=== PATIENT | male | born 1990 | race Hispanic/Latino ===

== ENCOUNTER 2017-02-13 14:00 | Inpatient (IN) | payer BC ==
[2017-02-13 14:13] VITALS: BMI 20.9
[2017-02-13] MEDS ORDERED: Iohexol 240 (50 ml) PO ONE (14:33)
[2017-02-13] MEDS ORDERED: Sodium Chloride 0.9% 1,000 ML IV STA (14:34)
--- NOTE | 2017-02-13 14:37 | ED PDOC ---
HPI: Abdomen Time Seen by Provider: 02/13/17 14:34 Chief Complaint (Nursing): Abdominal Pain Chief Complaint (Provider): abdominal pain History Per: Patient (27 y/o male here with lower abdominal pain/constipation x 1 week with new fever 101 at home. Patient states he was seen by Marcia MAGALLANES with [facility] noting constipation and started on myelax without relief of symptoms. Patient was seen by GI and started on medication. Was to have CT on tuesday but elevated wbc noted on bloodwork and fever last night prompted GI to refer to ED. Notes increased frequency in urination. NO h/o abdominal surgeries/etc.) Past Medical History Reviewed: Historical Data, Nursing Documentation, Vital Signs Vital Signs: Last Vital Signs Temp 99.2 F 02/13/17 18:20 Pulse 86 02/13/17 18:20 Resp 16 02/13/17 18:20 BP 131/73 02/13/17 18:20 Pulse Ox 99 02/13/17 18:20 - Medical History PMH: Anxiety Denies: Diabetes, Hepatitis, HIV, HTN, Seizures, Sexually Transmitted Disease - Family History Family History: States: Unknown Family Hx - Home Medications Home Medications: Ambulatory Orders Medication Instructions Recorded Escitalopram [Lexapro] 20 mg PO DAILY 02/13/17 clonazePAM [Klonopin] 0.5 mg PO BID 02/13/17 - Allergies Allergies/Adverse Reactions: Allergies Allergy/AdvReac Type Severity Reaction Status Date / Time No Known Allergies Allergy Verified 02/13/17 18:12 Review of Systems ROS Statement: Except As Marked, All Systems Reviewed And Found Negative Gastrointestinal: Positive for: Abdominal Pain Physical Exam - Reviewed Nursing Documentation Reviewed: Yes Vital Signs Reviewed: Yes - Physical Exam Appears: Positive for: Well, Non-toxic, No Acute Distress Head Exam: Positive for: ATRAUMATIC, NORMAL INSPECTION, NORMOCEPHALIC Skin: Positive for: Normal Color, Warm, DRY Eye Exam: Positive for: EOMI, Normal appearance, PERRL ENT: Positive for: Normal ENT Inspection Neck: Positive for: Normal, Painless ROM Cardiovascular/Chest: Positive for: Regular Rate, Rhythm Respiratory: Positive for: CNT, Normal Breath Sounds Gastrointestinal/Abdominal: Positive for: Normal Exam, Bowel Sounds, Soft, Tenderness (mild tenderness lower abdomen R> L. Decreased Bowel sounds.) Back: Positive for: Normal Inspection Extremity: Positive for: Normal ROM Neurologic/Psych: Positive for: Alert, Oriented - Laboratory Results Result Diagrams: 02/13/17 14:59 02/13/17 14:59 - ECG O2 Sat by Pulse Oximetry: 98 - Progress ED Course And Treament: ELEVATED WBC. URINE WITH RBC/WBC. ROCEPHIN ORDERED. LACTATE/BC X [address] ANGELES NOTES SIGMOID ABSCESS WITH ADJOINING COLITIS/CYSTITIS D/W DR. WESLEY ZOFOSTER 4.5 GM IV X 1 DOSE D/W DR. ACEVEDO. D/W DR. TELLEZ SALES DEMONSTRATOR FOR [facility]. FLAGYL 500 MG IV X 1 DOSE ADDED. D/W DR. CURIEL. WILL COME TO ED TO SEE PATIENT. Medical Decision Making Medical Decision Makin:32 CT FINDINGS: MULTI OF LOCULATED ABSCESS IN THE PELVIS WHICH APPEARS TO BE EMANATING FROM THE SIGMOID COLON. INFLAMMATORY CHANGES AFFECTING THE SIGMOID COLON, SPARING THE RECTUM AND DESCENDING COLON ARE SEVERE/LOCALLY INVASIVE. INFLAMMATORY CHANGES AFFECTED LOOPS OF SMALL BOWEL IN THE PELVIS WITHOUT MECHANICAL OBSTRUCTION. ALTHOUGH THERE IS NO OBVIOUS INVASION OF THE BLADDER, THE BLADDER WALL IS THICKENED. THE MULTILOCULATED PHLEGMONOUS PROCESS WITH INNUMERABLE LOCKING WELL IS A AIR MEASURES 6.7 X 6 BY 6.2 CM. IN THE PELVIS SEPARATE FROM THE PREVIOUSLY DESCRIBED FINDINGS IS A WELL-FORMED CYSTIC COLLECTION WITHOUT APPRECIABLE INFLAMMATORY COMPONENT 3.3 X 4.2 CM THE BORDERS APPEAR CONTIGUOUS WITH THE SIGMOID AND RECTUM. THERE IS A SMALL FISTULOUS TRACT WITH THE LARGER INFLAMMATORY COMPONENT. THESE FINDINGS ARE BEST SEEN ON THE SAGITTAL SERIES. PLEASE REFER TO SERIES 602 6 6-8 6 LOWER THORAX: Unremarkable. LIVER: Unremarkable. No gross lesion or ductal dilatation. GALLBLADDER AND BILE DUCTS: Unremarkable. PANCREAS: Unremarkable. No gross lesion or ductal dilatation. SPLEEN: Unremarkable. ADRENALS: Unremarkable. No mass. KIDNEYS AND URETERS: Mild fullness both collecting systems likely relates to the inflammatory process affecting both distal ureters. VASCULATURE: Unremarkable. No aortic aneurysm. BOWEL: Extensive inflammatory changes likely emanating from perforation of the sigmoid colon. Affected anatomic structures include sigmoid, pelvic loops of small bowel. APPENDIX: Normal appendix. PERITONEUM: Unremarkable. No free fluid. No free air. LYMPH NODES: Unremarkable. No enlarged lymph nodes. BLADDER: Diffuse moderate cystitis. This tract sports 80 year ray cold duct remnant midline structure. Please refer to series 602, image 73. REPRODUCTIVE: Unremarkable. BONES: No acute fracture. Moderate thoracolumbar scoliosis. OTHER FINDINGS: None. IMPRESSION: Intense inflammatory process in the pelvis including the larger multiloculated phlegmonous component with innumerable foci of air This likely emanates from the sigmoid colon. Fistulous communication with a separate less complicated and well-circumscribed collection in the pelvis has been described in greater detail above. Cystitis: The bladder wall is diffusely thickened and there are inflammatory changes tracking anteriorly along the midline consistent with inflammation in the recall duct remnant. Disposition - Clinical Impression Clinical Impression: Abscess of sigmoid colon - Patient ED Disposition Is Patient to be Admitted: Yes - Disposition Disposition Time: 18:32 Condition: FAIR - Pt Status Changed To: Hospital Disposition Of: Inpatient - Admit Certification Admit to Inpatient:: After my assessment, the patient will require hospitalization for at least two midnights. This is because of the severity of symptoms shown, intensity of services needed, and/or the medical risk in this patient being treated as an outpatient.
[2017-02-13] MEDS ORDERED: Iohexol 240 (50 ml) ONE (14:50)
[2017-02-13 15:05] LABS: BASO # 0.3 K/uL (0.0-0.2); BASO % 1.1 % (0.0-2.0); EOS % 0.1 % (0.0-4.0); LYMPH # 1.2 K/uL (1.0-4.3); LYMPH % 5.1 % (20.0-40.0); MEAN CORPUSCULAR HEMOGLOBIN 29.2 pg (27.0-31.0); MEAN CORPUSCULAR HGB CONC 32.5 g/dL (33.0-37.0); MEAN PLATELET VOLUME 7.6 fl (7.2-11.7); MONO # 2.6 K/uL (0.0-0.8); MONO % 10.8 % (0.0-10.0); NEUT # 20.2 K/uL (1.8-7.0); NEUT % 82.9 % (50.0-75.0); PLATELET COUNT 359 K/uL (130-400); RED CELL DISTRIBUTION WIDTH 13.1 % (11.5-14.5); WHITE BLOOD COUNT 24.4 K/uL (4.8-10.8)
[2017-02-13 15:14] LABS: ALB/GLOB RATIO 0.9 (1.0-2.1); ALKALINE PHOSPHATASE 93 U/L (38-126); ALT/SGPT 35 U/L (21-72); AST/SGOT 27 U/L (17-59); BILIRUBIN,TOTAL 0.9 mg/dl (0.2-1.3); BLOOD UREA NITROGEN 10 mg/dl (9-20); CALCIUM 9.5 mg/dL (8.4-10.2); CARBON DIOXIDE 27 mmol/L (22-30); CHLORIDE 99 mmol/L (98-107); GFR AFRICAN-AMERICAN > 60; GLUCOSE,RANDOM 93 mg/dL (75-110); LIPASE 17 U/L (23-300); POTASSIUM 4.6 MMOL/L (3.6-5.0); SODIUM 142 mmol/l (132-148); TOTAL PROTEIN 7.8 G/DL (6.3-8.2)
[2017-02-13 15:24] LABS: GRANULAR CAST 4 /lpf (0-1); RBC URINE 25 /hpf (0-3); URINE BACTERIA RARE (<OCC); URINE CALCIUM OXALATE CRYSTALS MANY /hpf (<OCC); WBC URINE 7 /hpf (0-5)
[2017-02-13 15:26] LABS: URINE BILIRUBIN NEGATIVE (NEGATIVE); URINE BLOOD SMALL (NEGATIVE); URINE COLOR AMBER (YELLOW); URINE GLUCOSE (UA) NEG (Normal); URINE KETONE 20 mg/dL (NEGATIVE); URINE LEUKOCYTE ESTERASE NEG Leu/uL (Negative); URINE PROTEIN 30 mg/dL (NEGATIVE); URINE UROBILINOGEN 0.2-1.0 mg/dL (0.2-1.0)
[2017-02-13 15:33] LABS: NEUTROPHIL 86 % (42-75); TOTAL CELLS COUNTED 100
[2017-02-13] MEDS ORDERED: cefTRIAXone (Rocephin) 1 gm Inj IVPB ONE ×2 (15:33→15:36)
[2017-02-13] MEDS ORDERED: Iodixanol 320 MG/ML 100 ML BOTTLE IV ONE (16:14)
[2017-02-13] MEDS ORDERED: Sodium Chloride 0.9% 100 ML IV ONE (16:14)
[2017-02-13] MEDS ORDERED: cefTRIAXone (Rocephin) 1 gm Inj ONE (16:52)
[2017-02-13] MEDS ORDERED: Piperacillin/Tazobact 4.5 GM in Sodium Chloride 0.9% 100 ML IVPB STA (17:47)
--- NOTE | 2017-02-13 17:56 | CT ---
PROCEDURE: CT Abdomen and Pelvis with contrast HISTORY: abdominal pain/fever COMPARISON: None. TECHNIQUE: Contrast dose: 90 cc Visipaque 320 Radiation dose: Total exam DLP = 441.54 mGy-cm. This CT exam was performed using one or more of the following dose reduction techniques: Automated exposure control, adjustment of the mA and/or kV according to patient size, and/or use of iterative reconstruction technique. FINDINGS: MULTI OF LOCULATED ABSCESS IN THE PELVIS WHICH APPEARS TO BE EMANATING FROM THE SIGMOID COLON. INFLAMMATORY CHANGES AFFECTING THE SIGMOID COLON, SPARING THE RECTUM AND DESCENDING COLON ARE SEVERE/LOCALLY INVASIVE. INFLAMMATORY CHANGES AFFECTED LOOPS OF SMALL BOWEL IN THE PELVIS WITHOUT MECHANICAL OBSTRUCTION. ALTHOUGH THERE IS NO OBVIOUS INVASION OF THE BLADDER, THE BLADDER WALL IS THICKENED. THE MULTILOCULATED PHLEGMONOUS PROCESS WITH INNUMERABLE LOCKING WELL IS A AIR MEASURES 6.7 X 6 BY 6.2 CM. IN THE PELVIS SEPARATE FROM THE PREVIOUSLY DESCRIBED FINDINGS IS A WELL-FORMED CYSTIC COLLECTION WITHOUT APPRECIABLE INFLAMMATORY COMPONENT 3.3 X 4.2 CM THE BORDERS APPEAR CONTIGUOUS WITH THE SIGMOID AND RECTUM. THERE IS A SMALL FISTULOUS TRACT WITH THE LARGER INFLAMMATORY COMPONENT. THESE FINDINGS ARE BEST SEEN ON THE SAGITTAL SERIES. PLEASE REFER TO SERIES 602 6 6-8 6 LOWER THORAX: Unremarkable. LIVER: Unremarkable. No gross lesion or ductal dilatation. GALLBLADDER AND BILE DUCTS: Unremarkable. PANCREAS: Unremarkable. No gross lesion or ductal dilatation. SPLEEN: Unremarkable. ADRENALS: Unremarkable. No mass. KIDNEYS AND URETERS: Mild fullness both collecting systems likely relates to the inflammatory process affecting both distal ureters. VASCULATURE: Unremarkable. No aortic aneurysm. BOWEL: Extensive inflammatory changes likely emanating from perforation of the sigmoid colon. Affected anatomic structures include sigmoid, pelvic loops of small bowel. APPENDIX: Normal appendix. PERITONEUM: Unremarkable. No free fluid. No free air. LYMPH NODES: Unremarkable. No enlarged lymph nodes. BLADDER: Diffuse moderate cystitis. This tract sports 80 year ray cold duct remnant midline structure. Please refer to series 602, image 73. REPRODUCTIVE: Unremarkable. BONES: No acute fracture. Moderate thoracolumbar scoliosis. OTHER FINDINGS: None. IMPRESSION: Intense inflammatory process in the pelvis including the larger multiloculated phlegmonous component with innumerable foci of air This likely emanates from the sigmoid colon. Fistulous communication with a separate less complicated and well-circumscribed collection in the pelvis has been described in greater detail above. Cystitis: The bladder wall is diffusely thickened and there are inflammatory changes tracking anteriorly along the midline consistent with inflammation in the recall duct remnant. Communication of results: Study completed at 17:17. Results discussed with physician assistant professor of sociology at 17:43. Final results available at 17:56. February 13, 2017.
[2017-02-13] MEDS ORDERED: metroNIDAZOLE 500mg/100ml NS 100 ML IVPB ONE (18:41)
--- NOTE | 2017-02-13 18:49 | CP.PCM.HP ---
History of Present Illness - History of Present Illness History of Present Illness: 27 yo male with history of anxiety came in because of abdominal distention and lower abdominal pain since 10 days ago. Pain was on and off, progressively getting worse and accompanied with watery diarrhea. Saw GI who took a CT scan and blood work last Tuesday. Blood work showed elevated WBC. Patient developed fever last night. With the on going abdominal pain plus the leukocytosis and fever, his GI doctor advised him to seek ER consultation. Pt also admitted increased frequency of urination. Present on Admission - Present on Admission Any Indicators Present on Admission: No History of DVT/PE: No History of Uncontrolled Diabetes: No Urinary Catheter: No Decubitus Ulcer Present: No Review of Systems - Review of Systems All systems: reviewed and no additional remarkable complaints except (aside from those mentioned above, 12 point system review were negative by me) Past Patient History - Past Social History Smoking Status: Never Smoked Chewing Tobacco Use: No Cigar Use: No Alcohol: > 2 Drinks/Day (drinks 6-10 beer/day on weekends) Home Situation {Lives}: With Family - CARDIAC Hx Cardiac Disorders: No Hx Hypertension: No - PULMONARY Hx Respiratory Disorders: No Hx Tuberculosis: No - NEUROLOGICAL Hx Neurological Disorder: No Hx Seizures: No - HEENT Hx HEENT Problems: No - RENAL Hx Chronic Kidney Disease: No - ENDOCRINE/METABOLIC Hx Endocrine Disorders: No - HEMATOLOGICAL/ONCOLOGICAL Hx Blood Disorders: No Hx Human Immunodeficiency Virus (HIV): No - INTEGUMENTARY Hx Dermatological Problems: No - MUSCULOSKELETAL/RHEUMATOLOGICAL Hx Musculoskeletal Disorders: No - GASTROINTESTINAL Hx Gastrointestinal Disorders: No - GENITOURINARY/GYNECOLOGICAL Hx Genitourinary Disorders: No Hx Sexually Transmitted Disorders: No - PSYCHIATRIC Hx Anxiety: Yes - SURGICAL HISTORY Hx Surgeries: No - ANESTHESIA Hx Anesthesia: No Meds Allergies/Adverse Reactions: Allergies Allergy/AdvReac Type Severity Reaction Status Date / Time No Known Allergies Allergy Verified 02/13/17 18:12 Physical Exam - Constitutional Appears: No Acute Distress - Head Exam Head Exam: ATRAUMATIC - Eye Exam Eye Exam: absent: Scleral icterus - ENT Exam ENT Exam: Mucous Membranes Moist - Neck Exam Neck exam: Negative for: Meningismus - Respiratory Exam Respiratory Exam: absent: Rhonchi, Wheezes, Respiratory Distress - Cardiovascular Exam Cardiovascular Exam: REGULAR RHYTHM, +S1, +S2 - GI/Abdominal Exam GI & Abdominal Exam: Distended, Firm, Normal Bowel Sounds, Tenderness ( tenderness more on suprapubic and RLQ). absent: Guarding, Rebound - Rectal Exam Rectal Exam: Deferred - Extremities Exam Extremities exam: Negative for: pedal edema - Back Exam Back exam: absent: tenderness - Neurological Exam Neurological exam: Alert, Oriented x3 - Psychiatric Exam Psychiatric exam: Normal Affect - Skin Skin Exam: Dry, Intact Results - Vital Signs Recent Vital Signs: Last Vital Signs Temp 99.2 F 02/13/17 18:20 Pulse 86 02/13/17 18:20 Resp 16 02/13/17 18:20 BP 131/73 02/13/17 18:20 Pulse Ox 98 02/13/17 18:32 - Labs Result Diagrams: 02/13/17 14:59 02/13/17 14:59 Assessment & Plan (1) Abscess of sigmoid colon Status: Acute Comment: admit to med/surg. Blood culture x 2. Urine C&S. NPO. IV hydration with NSS 100c/hr. Zosyn 3.375gm IV q 6hrs. Flagyl 500mg IV q 8hrs. surgical consult with Dr Haro. GI consult with Dr Ramos (2) Cystitis Status: Acute Comment: urine C&S. CT scan of abdomen: diffuse thickening of the bladder wall (3) DVT prophylaxis Status: Acute Comment: venodyne boots while in bed
[2017-02-13 19:16] LABS: PARTIAL THROMBOPLASTIN TIME 29.2 SECONDS (23.3-32.5)
--- NOTE | 2017-02-13 19:34 | CP.PCM.CON ---
History of Present Illness - History of Present Illness History of Present Illness: 27 y.o. male comes to the hospital c/o lower abdominal pain for the duration of the last week and half. Patient states that he never had similar pain before. Reports some fevers at home, no nausea, no vomiting, passing flatus and having loose bowel movements (no blood in the stool). Patient went to several doctors in [facility] and was told that he has some gas pains. Patient also saw a transit proof machine operator who did the blood work and told the patient that if he develops a fever to go to the hospital. Denies any sick contacts at home, no urinary symptoms. Never had a colonoscopy. Review of Systems - Constitutional Constitutional: Chills, Fever - EENT Eyes: Other (unremarkable) Ears: Other (unremarkable) Nose/Mouth/Throat: Other (unremarkable) - Cardiovascular Cardiovascular: Other (unremarkable) - Respiratory Respiratory: Other (unremarkable) - Gastrointestinal Gastrointestinal: As Per HPI - Genitourinary Genitourinary: As Per HPI - Reproductive: Male Reproductive:Male: Other (unremarkable) - Musculoskeletal Musculoskeletal: Other (unremarkable) - Integumentary Integumentary: Other (unremarkable) - Neurological Neurological: Other (unremarkable) - Psychiatric Psychiatric: Anxiety - Endocrine Endocrine: Other (unremarkable) - Hematologic/Lymphatic Hematologic: Other (unremarkable) Past Patient History - Past Social History Smoking Status: Never Smoked Chewing Tobacco Use: No Cigar Use: No Alcohol: > 2 Drinks/Day (drinks 6-10 beer/day on weekends) Home Situation {Lives}: With Family - CARDIAC Hx Cardiac Disorders: No Hx Hypertension: No - PULMONARY Hx Respiratory Disorders: No Hx Tuberculosis: No - NEUROLOGICAL Hx Neurological Disorder: No Hx Seizures: No - HEENT Hx HEENT Problems: No - RENAL Hx Chronic Kidney Disease: No - ENDOCRINE/METABOLIC Hx Endocrine Disorders: No - HEMATOLOGICAL/ONCOLOGICAL Hx Blood Disorders: No Hx Human Immunodeficiency Virus (HIV): No - INTEGUMENTARY Hx Dermatological Problems: No - MUSCULOSKELETAL/RHEUMATOLOGICAL Hx Musculoskeletal Disorders: No - GASTROINTESTINAL Hx Gastrointestinal Disorders: No - GENITOURINARY/GYNECOLOGICAL Hx Genitourinary Disorders: No Hx Sexually Transmitted Disorders: No - PSYCHIATRIC Hx Anxiety: Yes - SURGICAL HISTORY Hx Surgeries: No - ANESTHESIA Hx Anesthesia: No Meds Allergies/Adverse Reactions: Allergies Allergy/AdvReac Type Severity Reaction Status Date / Time No Known Allergies Allergy Verified 02/13/17 18:12 - Medications Medications: Current Medications Metronidazole (Flagyl 500mg/100ml Ns) 100 mls @ 100 mls/hr IVPB ONCE [facility] Sodium Chloride (Sodium Chloride 0.9%) 1,000 mls @ 100 mls/hr IV .Q10H LETICIA Metronidazole (Flagyl 500mg/100ml Ns) 100 mls @ 100 mls/hr IVPB Q8 [facility] Piperacillin Sod/Tazobactam (Sod 3.375 gm/ Sodium Chloride) 100 mls @ 100 mls/ hr IVPB Q6 [facility] Morphine Sulfate (Morphine) 2 mg IVP Q4 PRN PRN Reason: Pain, moderate (4-7) Physical Exam - Constitutional Appears: Well, Non-toxic, No Acute Distress - Head Exam Head Exam: ATRAUMATIC, NORMAL INSPECTION, NORMOCEPHALIC - Eye Exam Eye Exam: EOMI, Normal appearance, PERRL Pupil Exam: NORMAL ACCOMODATION, PERRL - ENT Exam ENT Exam: Mucous Membranes Dry - Neck Exam Neck exam: Positive for: Full Rom, Normal Inspection - Respiratory Exam Respiratory Exam: Clear to Auscultation Bilateral, NORMAL BREATHING PATTERN - Cardiovascular Exam Cardiovascular Exam: REGULAR RHYTHM, +S1, +S2 - GI/Abdominal Exam GI & Abdominal Exam: Hypoactive Bowel Sounds, Soft Additional comments: Tender to palpation in the LLQ, mildly distended, no rebound, no guarding - Rectal Exam Rectal Exam: Deferred - Extremities Exam Extremities exam: Positive for: full ROM, normal inspection - Neurological Exam Neurological exam: Alert, CN II-XII Intact, Oriented x3 - Psychiatric Exam Psychiatric exam: Normal Affect, Normal Mood - Skin Skin Exam: Dry, Intact, Normal Color, Warm Results - Vital Signs Recent Vital Signs: Last Vital Signs Temp 99.2 F 02/13/17 18:20 Pulse 86 02/13/17 18:20 Resp 16 02/13/17 18:20 BP 131/73 02/13/17 18:20 Pulse Ox 98 02/13/17 18:32 - Labs Result Diagrams: 02/13/17 14:59 02/13/17 14:59 Labs: Laboratory Results - last 24 hr 02/13/17 18:52 PT 13.1 H INR 1.26 H APTT 29.2 - Imaging and Cardiology CT scan - abdomen Status: Image reviewed by me, Report reviewed by me Assessment & Plan - Assessment and Plan (Free Text) Assessment: 27 y.o. male with colitis and edgar-colonic abscess Plan: - Admit to med/surg - Keep NPO - IV fluids - Pain control - Zosyn IV - Zofran prn - Will consult Interventional Radilogy for possible abscess drainage - Repeat labs in am - Will follow closely
[2017-02-13] MEDS: metroNIDAZOLE 500mg/100ml NS 100 ML IVPB SCH (19:37)
[2017-02-13] MEDS: Sodium Chloride 0.9% 1,000 ML IV SCH (19:46)
[2017-02-14] MEDS: Piperacillin/Tazobact 3.375 GM in Sodium Chloride 0.9% 100 ML IVPB SCH ×5 (00:33→21:29)
[2017-02-14] MEDS: metroNIDAZOLE 500mg/100ml NS 100 ML IVPB SCH ×5 (00:38→17:37)
[2017-02-14] MEDS: Sodium Chloride 0.9% 1,000 ML IV SCH ×3 (04:28→21:24)
[2017-02-14 05:12] LABS: BASO # 0.1 K/uL (0.0-0.2); BASO % 0.2 % (0.0-2.0); EOS % 0.1 % (0.0-4.0); HEMATOCRIT 33.3 % (35.0-51.0); LYMPH # 1.9 K/uL (1.0-4.3); MEAN CELL VOLUME 90.9 fl (80.0-94.0); MEAN CORPUSCULAR HEMOGLOBIN 29.4 pg (27.0-31.0); MEAN CORPUSCULAR HGB CONC 32.3 g/dL (33.0-37.0); MEAN PLATELET VOLUME 7.7 fl (7.2-11.7); MONO # 2.7 K/uL (0.0-0.8); MONO % 11.3 % (0.0-10.0); NEUT # 18.9 K/uL (1.8-7.0); NEUT % 80.4 % (50.0-75.0); RED CELL DISTRIBUTION WIDTH 13.1 % (11.5-14.5); WHITE BLOOD COUNT 23.5 K/uL (4.8-10.8)
[2017-02-14 05:27] LABS: BLOOD UREA NITROGEN 9 mg/dl (9-20); CALCIUM 8.8 mg/dL (8.4-10.2); CARBON DIOXIDE 18 mmol/L (22-30); CHLORIDE 104 mmol/L (98-107); GFR AFRICAN-AMERICAN > 60; GLUCOSE,RANDOM 78 mg/dL (75-110); SODIUM 141 mmol/l (132-148)
--- NOTE | 2017-02-14 09:22 | CP.PCM.PN ---
<Jared Carmenel - Last Filed: 02/14/17 09:19> Subjective - Date & Time of Evaluation Date of Evaluation: 02/14/17 Time of Evaluation: 07:45 - Subjective Subjective: General Surgery Pt S&E, Febrile overnight to 102.4. States pain has improved with meds. No other complaints at this time. Objective - Vital Signs/Intake and Output Vital Signs (last 24 hours): Temp Pulse Resp BP Pulse Ox 100 F H 119 H 20 118/68 97 02/14/17 08:38 02/14/17 08:38 02/14/17 08:38 02/14/17 08:38 02/14/17 08:38 - Medications Medications: Current Medications Metronidazole (Flagyl 500mg/100ml Ns) 100 mls @ 100 mls/hr IVPB ONCE LETICIA Last Admin: 02/14/17 09:05 Dose: 100 mls/hr Sodium Chloride (Sodium Chloride 0.9%) 1,000 mls @ 100 mls/hr IV .Q10H LETICIA Last Admin: 02/14/17 04:28 Dose: 100 mls/hr Metronidazole (Flagyl 500mg/100ml Ns) 100 mls @ 100 mls/hr IVPB Q8 LETICIA Last Admin: 02/14/17 00:38 Dose: 100 mls/hr Piperacillin Sod/Tazobactam (Sod 3.375 gm/ Sodium Chloride) 100 mls @ 100 mls/ hr IVPB Q6 [facility]ICIA Last Admin: 02/14/17 09:04 Dose: 100 mls/hr Morphine Sulfate (Morphine) 2 mg IVP Q4 PRN PRN Reason: Pain, moderate (4-7) Last Admin: 02/14/17 05:21 Dose: 2 mg - Labs Labs: 02/14/17 04:00 02/14/17 04:00 PT 13.1 SECONDS (9.6-11.2) H 02/13/17 18:52 INR 1.26 (0.92-1.08) H 02/13/17 18:52 APTT 29.2 SECONDS (23.3-32.5) 02/13/17 18:52 - Constitutional Appears: Non-toxic, No Acute Distress - Head Exam Head Exam: ATRAUMATIC, NORMOCEPHALIC - Eye Exam Eye Exam: EOMI. absent: Scleral icterus - Respiratory Exam Respiratory Exam: NORMAL BREATHING PATTERN. absent: Respiratory Distress - GI/Abdominal Exam GI & Abdominal Exam: Firm (in lower abd), Guarding (mild), Soft (in upper abd), Tenderness (in lower abdomen). absent: Distended, Rigid, Rebound - Neurological Exam Neurological Exam: Alert, Awake, Oriented x3 - Skin Skin Exam: Dry, Warm Assessment and Plan - Assessment and Plan (Free Text) Assessment: 27M with colitis and edgar-colonic abscess Plan: Interventional Radiology for possible abscess drainage NPO Analgesia IVF Cont Abx D/W Dr. Tahir Carmen PGY3 <Alvino Haro - Last Filed: 02/14/17 13:30> Subjective - Date & Time of Evaluation Date of Evaluation: 02/14/17 Time of Evaluation: 13:00 - Subjective Subjective: Patient was seen and examined at the bedside. Agree with resident's note above Objective - Vital Signs/Intake and Output Vital Signs (last 24 hours): Temp Pulse Resp BP Pulse Ox 100 F H 119 H 20 118/68 97 02/14/17 08:38 02/14/17 08:38 02/14/17 08:38 02/14/17 08:38 02/14/17 08:38 - Medications Medications: Current Medications Acetaminophen (Tylenol 325mg Tab) 650 mg PO Q6 PRN PRN Reason: Fever >100.4 F Acetaminophen (Tylenol 325 Mg Supp) 650 mg MT Q6 PRN PRN Reason: Fever >100.4 F Clonazepam (Klonopin) 0.5 mg PO BID [facility] Last Admin: 02/14/17 11:42 Dose: 0.5 mg Escitalopram Oxalate (Lexapro) 20 mg PO DAILY [facility] Last Admin: 02/14/17 11:42 Dose: 20 mg Metronidazole (Flagyl 500mg/100ml Ns) 100 mls @ 100 mls/hr IVPB ONCE [facility] Last Admin: 02/14/17 09:05 Dose: 100 mls/hr Metronidazole (Flagyl 500mg/100ml Ns) 100 mls @ 100 mls/hr IVPB Q8 [facility] Last Admin: 02/14/17 10:56 Dose: Not Given Piperacillin Sod/Tazobactam (Sod 3.375 gm/ Sodium Chloride) 100 mls @ 100 mls/ hr IVPB Q6 [facility] Last Admin: 02/14/17 09:04 Dose: 100 mls/hr Sodium Chloride (Sodium Chloride 0.9%) 1,000 mls @ 125 mls/hr IV .Q8H [facility] Morphine Sulfate (Morphine) 2 mg IVP Q4 PRN PRN Reason: Pain, moderate (4-7) Last Admin: 02/14/17 12:38 Dose: 2 mg - Labs Labs: 02/14/17 04:00 02/14/17 04:00 PT 13.1 SECONDS (9.6-11.2) H 02/13/17 18:52 INR 1.26 (0.92-1.08) H 02/13/17 18:52 APTT 29.2 SECONDS (23.3-32.5) 02/13/17 18:52 Assessment and Plan - Assessment and Plan (Free Text) Plan: - I have discussed the CT scan with Dr. Allen from IR and at this point no drainage by IR - Keep NPO - IV fluids - Continue antibiotics as per ID - GI follow up - Pain control - Repeat labs in am - Will follow
--- NOTE | 2017-02-14 10:48 | CP.PCM.CON ---
History of Present Illness - History of Present Illness History of Present Illness: Asked by Dr. Javed for a GI consultation on this patient. 27 year old male with history of anxiety who presents to hospital with complaint of progressive abdominal pain. He describes a LLQ 6/10 intensity abdominal pain that radiates to suprapubic region which began approximately 10 days ago. Prior to this he was in usual state of health. The abdominal pain is stabbing in nature and has been associated with multiple loose bowel movements. He also endorses chills but denies rectal bleeding, nausea, vomiting, or weight loss. He denies recent travel, sick contacts, recent antibiotic use, or similar prior episodes. No prior endoscopic evaluation. Social history: occasional cigarette smoker, social ETOH use Family history: grandfather (lung CA) Review of Systems - Review of Systems Review of Systems: - All other comprehensive 12 point review of systems performed, negative - Constitutional Constitutional: Chills - Cardiovascular Cardiovascular: absent: Acrocyanosis, Chest Pain, Chest Pain at Rest, Chest Pain with Activity, Claudication, Diaphoresis, Dyspnea, Dyspnea on Exertion, Edema, Irregular Heart Rhythm, Pain Radiating to Arm/Neck/Jaw, Leg Edema, Leg Ulcers, Lightheadedness, Orthopnea, Palpitations, Paroxysmal Nocturnal Dyspnea, Pedal Edema, Radiating Pain, Rapid Heart Rate, Slow Heart Rate, Syncope, Other - Respiratory Respiratory: absent: Cough, Dyspnea, Hemoptysis, Dyspnea on Exertion, Wheezing, Snoring, Stridor, Pain on Inspiration, Chest Congestion, Excessive Mucous Production, Change in Mucous Color, Pain with Coughing, Other - Gastrointestinal Gastrointestinal: Abdominal Pain, Loose Stools - Musculoskeletal Musculoskeletal: absent: Abnormal Gait, Arthralgias, Atrophy, Back Pain, Deformity, Joint Swelling, Limited Range of Motion, Loss of Height, Muscle Cramps, Muscle Weakness, Myalgias, Neck Pain, Numbness, Radiating Pain into Limb , Stiffness, Tingling, Other - Neurological Neurological: absent: Abnormal Gait, Abnormal Hearing, Abnormal Movements, Abnormal Speech, Behavioral Changes, Burning Sensations, Confusion, Convulsions , Disequilibrium, Dizziness, Numbness, Focal Weakness, Frequent Falls, Headaches , Lack of Coordination, Loss of Vision, Memory Loss, Paresthesias, Radicular Pain, Restless Legs, Sensory Deficit, Syncope, Tingling, Tremor, Vertigo, Weakness, Other Visual Disturbances, Other Past Patient History - Past Medical History & Family History Past Medical History?: Yes - Past Social History Smoking Status: Never Smoked - CARDIAC Hx Cardiac Disorders: No - PULMONARY Hx Respiratory Disorders: No - NEUROLOGICAL Hx Neurological Disorder: No - HEENT Hx HEENT Problems: No - RENAL Hx Chronic Kidney Disease: No - ENDOCRINE/METABOLIC Hx Endocrine Disorders: No - HEMATOLOGICAL/ONCOLOGICAL Hx Blood Disorders: No - INTEGUMENTARY Hx Dermatological Problems: No - MUSCULOSKELETAL/RHEUMATOLOGICAL Hx Musculoskeletal Disorders: No Hx Falls: No - GASTROINTESTINAL Hx Gastrointestinal Disorders: No - GENITOURINARY/GYNECOLOGICAL Hx Genitourinary Disorders: No - PSYCHIATRIC Hx Psychophysiologic Disorder: Yes Hx Anxiety: Yes Hx Substance Use: No - SURGICAL HISTORY Hx Surgeries: No - ANESTHESIA Hx Anesthesia: No Hx Anesthesia Reactions: No Meds Allergies/Adverse Reactions: Allergies Allergy/AdvReac Type Severity Reaction Status Date / Time No Known Allergies Allergy Verified 02/13/17 18:12 - Medications Medications: Current Medications Acetaminophen (Tylenol 325mg Tab) 650 mg PO Q6 PRN PRN Reason: Fever >100.4 F Acetaminophen (Tylenol 325 Mg Supp) 650 mg [place] Q6 PRN PRN Reason: Fever >100.4 F Metronidazole (Flagyl 500mg/100ml Ns) 100 mls @ 100 mls/hr IVPB ONCE [facility] Last Admin: 02/14/17 09:05 Dose: 100 mls/hr Sodium Chloride (Sodium Chloride 0.9%) 1,000 mls @ 100 mls/hr IV .Q10H [facility] Last Admin: 02/14/17 04:28 Dose: 100 mls/hr Metronidazole (Flagyl 500mg/100ml Ns) 100 mls @ 100 mls/hr IVPB Q8 [facility] Last Admin: 02/14/17 00:38 Dose: 100 mls/hr Piperacillin Sod/Tazobactam (Sod 3.375 gm/ Sodium Chloride) 100 mls @ 100 mls/ hr IVPB Q6 [facility] Last Admin: 02/14/17 09:04 Dose: 100 mls/hr Morphine Sulfate (Morphine) 2 mg IVP Q4 PRN PRN Reason: Pain, moderate (4-7) Last Admin: 02/14/17 05:21 Dose: 2 mg Physical Exam - Constitutional Appears: Non-toxic, No Acute Distress - Head Exam Head Exam: NORMAL INSPECTION - Eye Exam Eye Exam: EOMI, Normal appearance - ENT Exam ENT Exam: Mucous Membranes Moist - Respiratory Exam Respiratory Exam: Clear to Auscultation Bilateral - Cardiovascular Exam Cardiovascular Exam: REGULAR RHYTHM, +S1, +S2 - GI/Abdominal Exam GI & Abdominal Exam: Normal Bowel Sounds, Soft, Tenderness Additional comments: LLQ tenderness to palpation, +guarding, no rebound no palpable hepato/splenomegaly - Extremities Exam Extremities exam: Positive for: normal inspection - Neurological Exam Neurological exam: Alert, CN II-XII Intact, Normal Gait, Oriented x3, Reflexes Normal - Psychiatric Exam Psychiatric exam: Normal Affect, Normal Mood - Skin Skin Exam: Dry, Intact, Normal Color, Warm Results - Vital Signs Recent Vital Signs: Last Vital Signs Temp 100 F H 02/14/17 08:38 Pulse 119 H 02/14/17 08:38 Resp 20 02/14/17 08:38 BP 118/68 02/14/17 08:38 Pulse Ox 97 02/14/17 08:38 - Labs Result Diagrams: 02/14/17 04:00 02/14/17 04:00 Labs: Laboratory Results - last 24 hr 02/13/17 02/14/17 18:52 04:00 WBC 23.5 H RBC 3.66 L Hgb 10.8 L Hct 33.3 L MCV 90.9 MCH 29.4 MCHC 32.3 L RDW 13.1 Plt Count 329 MPV 7.7 Neut % (Auto) 80.4 H Lymph % (Auto) 8.0 L [place] % (Auto) 11.3 H Eos % (Auto) 0.1 Baso % (Auto) 0.2 Neut # 18.9 H Lymph # 1.9 [place] # 2.7 H Eos # 0.0 Baso # 0.1 PT 13.1 H INR 1.26 H APTT 29.2 Sodium 141 Potassium 4.0 Chloride 104 Carbon Dioxide 18 L Anion Gap 23 H BUN 9 Creatinine 0.8 Est GFR ( Amer) > 60 Est GFR (Non-Af Amer) > 60 Random Glucose 78 Calcium 8.8 Blood Type B POSITIVE Antibody Screen Negative BBK History Checked No verified bt Assessment & Plan - Assessment and Plan (Free Text) Assessment: Anxiety Abdominal pain CT imaging reviewed by me showing pelvic multiloculated abscess with foci of free air adjacent to thickened sigmoid colon. Separate cystic collection in pelvis likely secondary to fluid tracking from abscess site. Plan: - NPO - Continue with antibiotic therapy - Pain control - Follow up results of blood culture - Case discussed with Dr. Mistry (IR) and images reviewed. Given small access point for potential IR drainage, patient would likely be better served using laparoscopic surgical approach for treatment of abscess. Surgical team made aware of recommendations, will continue to monitor patient clinical course. - He will require outpatient elective colonoscopy within 6-8 weeks following resolution of acute symptoms. He follows with private digital artist in [place].
--- NOTE | 2017-02-14 12:15 | CP.PCM.CON ---
History of Present Illness - History of Present Illness History of Present Illness: 27 y.o. male comes to the hospital c/o lower abdominal pain for the last week and half. Patient states that he never had similar pain before. Reports some fevers at home, no nausea, no vomiting, passing flatus and having loose bowel movements (no blood in the stool) . Patient went to several doctors in [facility] and was told that he has some gas pains. Patient also saw a portfolio manager who did the blood work and told the patient that if he develops a fever to go to the hospital. Denies any sick contacts at home, no urinary symptoms. Never had a colonoscopy. found to have intra abd abscess sigmoid region iv antibiotics in progress Review of Systems - Constitutional Constitutional: As Per HPI, Anorexia, Malaise - EENT Eyes: absent: As Per HPI, Blind Spots, Blurred Vision, Change in Vision, Decreased Night Vision, Diplopia, Discharge, Dry Eye, Exophthalmos, Floaters, Irritation, Itchy Eyes, Loss of Peripheral Vision, Pain, Photophobia, Requires Corrective Lenses, Sees Flashes, Spots in Vision, Tunnel Vision, Other Visual Disturbances, Loss of Vision, Other Ears: absent: As Per HPI, Decreased Hearing, Ear Discharge, Ear Pain, Tinnitus, Abnormal Hearing, Disequilibrium, Dizziness, Other Nose/Mouth/Throat: absent: As Per HPI, Epistaxis, Nasal Congestion, Nasal Discharge, Nasal Obstruction, Nasal Trauma, Nose Pain, Post Nasal Drip, Sinus Pain, Sinus Pressure, Bleeding Gums, Change in Voice, Dental Pain, Dry Mouth, Dysphagia, Halitosis, Hoarsness, Lip Swelling, Mouth Lesions, Mouth Pain, Odynophagia, Sore Throat, Throat Swelling, Tongue Swelling, Facial Pain, Neck Pain, Neck Mass, Other - Cardiovascular Cardiovascular: absent: As Per HPI, Acrocyanosis, Chest Pain, Chest Pain at Rest , Chest Pain with Activity, Claudication, Diaphoresis, Dyspnea, Dyspnea on Exertion, Edema, Irregular Heart Rhythm, Pain Radiating to Arm/Neck/Jaw, Leg Edema, Leg Ulcers, Lightheadedness, Orthopnea, Palpitations, Paroxysmal Nocturnal Dyspnea, Pedal Edema, Radiating Pain, Rapid Heart Rate, Slow Heart Rate, Syncope, Other - Respiratory Respiratory: absent: As Per HPI, Cough, Dyspnea, Hemoptysis, Dyspnea on Exertion , Wheezing, Snoring, Stridor, Pain on Inspiration, Chest Congestion, Excessive Mucous Production, Change in Mucous Color, Pain with Coughing, Other - Gastrointestinal Gastrointestinal: As Per HPI - Genitourinary Genitourinary: absent: As Per HPI, Change in Urinary Stream, Difficulty Urinating, Dysuria, Flank Pain, Hematuria, Pyuria, Nocturia, Urinary Incontinence, Urinary Frequency, Urinary Hesitance, Urinary Urgency, Voiding Freq/Small Amts, Freq UTI, Hx Renal/Bladder Calculi, Hx /Renal Surgery, Bladder Distension, Other - Musculoskeletal Musculoskeletal: absent: As Per HPI, Abnormal Gait, Arthralgias, Atrophy, Back Pain, Deformity, Joint Swelling, Limited Range of Motion, Loss of Height, Muscle Cramps, Muscle Weakness, Myalgias, Neck Pain, Numbness, Radiating Pain into Limb, Stiffness, Tingling, Other - Integumentary Integumentary: absent: As Per HPI, Acne, Alopecia, Bleeding Lesions, Change in Hair, Change in Nails, Change in Pigmentation, Changing Lesions, Dry Skin, Erythema, Furuncle, Hirsutism, Lesions, New Lesions, Non-Healing Lesions, Photosensitivity, Pruritus, Rash, Skin Pain, Skin Ulcer, Sores, Striae, Swelling , Unusual Bruising, Wounds, Jaundice, Other - Neurological Neurological: absent: As Per HPI, Abnormal Gait, Abnormal Hearing, Abnormal Movements, Abnormal Speech, Behavioral Changes, Burning Sensations, Confusion, Convulsions, Disequilibrium, Dizziness, Numbness, Focal Weakness, Frequent Falls , Headaches, Lack of Coordination, Loss of Vision, Memory Loss, Paresthesias, Radicular Pain, Restless Legs, Sensory Deficit, Syncope, Tingling, Tremor, Vertigo, Weakness, Other Visual Disturbances, Other - Psychiatric Psychiatric: absent: As Per HPI, Abnormal Sleep Pattern, Anhedonia, Anxiety, Auditory Hallucinations, Behavioral Changes, Change in Appetite, Change in Libido, Confusion, Depression, Difficulty Concentrating, Hallucinations, Homicidal Ideation, Hopelessness, Irritability, Memory Loss, Mood Swings, Panic Attacks, Paranoia, Suicidal Ideation, Visual Hallucinations, Tactile Hallucinations, Other - Endocrine Endocrine: absent: As Per HPI, Change in Body Appearance, Change in Libido, Cold Intolorance, Deepening of Voice, Excessive Sweating, Fatigue, Flushing, Heat Intolorance, Increase in Ring/Shoe/Hat Size, Palpitations, Polydipsia, Polyphagia, Polyuria, Other Past Patient History - Past Medical History & Family History Past Medical History?: Yes - Past Social History Smoking Status: Never Smoked - CARDIAC Hx Cardiac Disorders: No - PULMONARY Hx Respiratory Disorders: No - NEUROLOGICAL Hx Neurological Disorder: No - HEENT Hx HEENT Problems: No - RENAL Hx Chronic Kidney Disease: No - ENDOCRINE/METABOLIC Hx Endocrine Disorders: No - HEMATOLOGICAL/ONCOLOGICAL Hx Blood Disorders: No - INTEGUMENTARY Hx Dermatological Problems: No - MUSCULOSKELETAL/RHEUMATOLOGICAL Hx Musculoskeletal Disorders: No Hx Falls: No - GASTROINTESTINAL Hx Gastrointestinal Disorders: No - GENITOURINARY/GYNECOLOGICAL Hx Genitourinary Disorders: No - PSYCHIATRIC Hx Psychophysiologic Disorder: Yes Hx Anxiety: Yes Hx Substance Use: No - SURGICAL HISTORY Hx Surgeries: No - ANESTHESIA Hx Anesthesia: No Hx Anesthesia Reactions: No Meds Allergies/Adverse Reactions: Allergies Allergy/AdvReac Type Severity Reaction Status Date / Time No Known Allergies Allergy Verified 02/13/17 18:12 - Medications Medications: Current Medications Acetaminophen (Tylenol 325mg Tab) 650 mg PO Q6 PRN PRN Reason: Fever >100.4 F Acetaminophen (Tylenol 325 Mg Supp) 650 mg [place] Q6 PRN PRN Reason: Fever >100.4 F Clonazepam (Klonopin) 0.5 mg PO BID [facility] Last Admin: 02/14/17 11:42 Dose: 0.5 mg Escitalopram Oxalate (Lexapro) 20 mg PO DAILY [facility] Last Admin: 02/14/17 11:42 Dose: 20 mg Metronidazole (Flagyl 500mg/100ml Ns) 100 mls @ 100 mls/hr IVPB ONCE [facility] Last Admin: 02/14/17 09:05 Dose: 100 mls/hr Sodium Chloride (Sodium Chloride 0.9%) 1,000 mls @ 100 mls/hr IV .Q10H [facility] Last Admin: 02/14/17 04:28 Dose: 100 mls/hr Metronidazole (Flagyl 500mg/100ml Ns) 100 mls @ 100 mls/hr IVPB Q8 [facility] Last Admin: 02/14/17 10:56 Dose: Not Given Piperacillin Sod/Tazobactam (Sod 3.375 gm/ Sodium Chloride) 100 mls @ 100 mls/ hr IVPB Q6 [facility] Last Admin: 02/14/17 09:04 Dose: 100 mls/hr Morphine Sulfate (Morphine) 2 mg IVP Q4 PRN PRN Reason: Pain, moderate (4-7) Last Admin: 02/14/17 05:21 Dose: 2 mg Physical Exam - Constitutional Appears: Non-toxic, Chronically Ill - Head Exam Head Exam: NORMOCEPHALIC - Eye Exam Eye Exam: PERRL. absent: Scleral icterus - ENT Exam ENT Exam: Mucous Membranes Dry - Neck Exam Neck exam: Negative for: Lymphadenopathy - Respiratory Exam Respiratory Exam: Decreased Breath Sounds, Rhonchi - Cardiovascular Exam Cardiovascular Exam: REGULAR RHYTHM, +S1, +S2 - GI/Abdominal Exam GI & Abdominal Exam: Diminished Bowel Sounds, Soft. absent: Tenderness - Rectal Exam Rectal Exam: Deferred - Exam Exam: NORMAL INSPECTION Results - Vital Signs Recent Vital Signs: Last Vital Signs Temp 100 F H 02/14/17 08:38 Pulse 119 H 02/14/17 08:38 Resp 20 02/14/17 08:38 BP 118/68 02/14/17 08:38 Pulse Ox 97 02/14/17 08:38 - Labs Result Diagrams: 02/14/17 04:00 02/14/17 04:00 Labs: Laboratory Results - last 24 hr 02/13/17 02/14/17 18:52 04:00 WBC 23.5 H RBC 3.66 L Hgb 10.8 L Hct 33.3 L MCV 90.9 MCH 29.4 MCHC 32.3 L RDW 13.1 Plt Count 329 MPV 7.7 Neut % (Auto) 80.4 H Lymph % (Auto) 8.0 L [place] % (Auto) 11.3 H Eos % (Auto) 0.1 Baso % (Auto) 0.2 Neut # 18.9 H Lymph # 1.9 [place] # 2.7 H Eos # 0.0 Baso # 0.1 PT 13.1 H INR 1.26 H APTT 29.2 Sodium 141 Potassium 4.0 Chloride 104 Carbon Dioxide 18 L Anion Gap 23 H BUN 9 Creatinine 0.8 Est GFR ( Amer) > 60 Est GFR (Non-Af Amer) > 60 Random Glucose 78 Calcium 8.8 Blood Type B POSITIVE Antibody Screen Negative BBK History Checked No verified bt Assessment & Plan (1) Abscess of sigmoid colon Status: Acute (2) Cystitis Status: Acute - Assessment and Plan (Free Text) Assessment: r/o chrons r/o ruptured diverticulum cystitis vs fistula cont iv rx will need drainage
--- NOTE | 2017-02-14 20:17 | CP.PCM.PN ---
Subjective - Date & Time of Evaluation Date of Evaluation: 02/14/17 Time of Evaluation: 22:22 - Subjective Subjective: Above noted Objective - Vital Signs/Intake and Output Vital Signs (last 24 hours): Temp Pulse Resp BP Pulse Ox 98.9 F 92 H 20 113/66 98 02/14/17 19:46 02/14/17 19:46 02/14/17 19:46 02/14/17 19:46 02/14/17 19:46 - Medications Medications: Current Medications Acetaminophen (Tylenol 325mg Tab) 650 mg PO Q6 PRN PRN Reason: Fever >100.4 F Acetaminophen (Tylenol 325 Mg Supp) 650 mg [place] Q6 PRN PRN Reason: Fever >100.4 F Clonazepam (Klonopin) 0.5 mg PO BID [facility] Last Admin: 02/14/17 11:42 Dose: 0.5 mg Escitalopram Oxalate (Lexapro) 20 mg PO DAILY [facility] Last Admin: 02/14/17 11:42 Dose: 20 mg Metronidazole (Flagyl 500mg/100ml Ns) 100 mls @ 100 mls/hr IVPB ONCE [facility] Last Admin: 02/14/17 17:36 Dose: 100 mls/hr Metronidazole (Flagyl 500mg/100ml Ns) 100 mls @ 100 mls/hr IVPB Q8 [facility] Last Admin: 02/14/17 17:37 Dose: Not Given Piperacillin Sod/Tazobactam (Sod 3.375 gm/ Sodium Chloride) 100 mls @ 100 mls/ hr IVPB Q6 [facility] Last Admin: 02/14/17 17:36 Dose: 100 mls/hr Sodium Chloride (Sodium Chloride 0.9%) 1,000 mls @ 125 mls/hr IV .Q8H [facility] Last Admin: 02/14/17 17:38 Dose: 125 mls/hr Morphine Sulfate (Morphine) 2 mg IVP Q4 PRN PRN Reason: Pain, moderate (4-7) Last Admin: 02/14/17 12:38 Dose: 2 mg - Labs Labs: 02/14/17 04:00 02/14/17 04:00 PT 13.1 SECONDS (9.6-11.2) H 02/13/17 18:52 INR 1.26 (0.92-1.08) H 02/13/17 18:52 APTT 29.2 SECONDS (23.3-32.5) 02/13/17 18:52 - Respiratory Exam Respiratory Exam: NORMAL BREATHING PATTERN - Cardiovascular Exam Cardiovascular Exam: REGULAR RHYTHM - GI/Abdominal Exam GI & Abdominal Exam: Normal Bowel Sounds Assessment and Plan - Assessment and Plan (Free Text) Assessment: Abdominal pain with elevated WBC CT scan ?? Abscess? IBD? Cystitis? Surgery GI ID ABX IVF NPO Pain meds Hematuria CT scan cystitis 2 to above ? Transfer to [facility] D/W family and GI at [facility]
[2017-02-15] MEDS: metroNIDAZOLE 500mg/100ml NS 100 ML IVPB SCH ×3 (00:34→17:28)
[2017-02-15] MEDS: Piperacillin/Tazobact 3.375 GM in Sodium Chloride 0.9% 100 ML IVPB SCH ×4 (04:00→21:01)
[2017-02-15 07:13] LABS: ALB/GLOB RATIO 0.9 (1.0-2.1); ALKALINE PHOSPHATASE 66 U/L (38-126); ALT/SGPT 23 U/L (21-72); AST/SGOT 21 U/L (17-59); BILIRUBIN,TOTAL 0.7 mg/dl (0.2-1.3); BLOOD UREA NITROGEN 7 mg/dl (9-20); CALCIUM 8.9 mg/dL (8.4-10.2); CARBON DIOXIDE 20 mmol/L (22-30); CHLORIDE 103 mmol/L (98-107); GFR AFRICAN-AMERICAN > 60; GLUCOSE,RANDOM 78 mg/dL (75-110); POTASSIUM 3.7 MMOL/L (3.6-5.0); SODIUM 141 mmol/l (132-148)
[2017-02-15 07:15] LABS: BASO % 0.2 % (0.0-2.0); EOS % 0.3 % (0.0-4.0); HEMATOCRIT 32.6 % (35.0-51.0); LYMPH # 1.4 K/uL (1.0-4.3); MEAN CELL VOLUME 90.3 fl (80.0-94.0); MEAN CORPUSCULAR HEMOGLOBIN 29.3 pg (27.0-31.0); MEAN CORPUSCULAR HGB CONC 32.5 g/dL (33.0-37.0); MEAN PLATELET VOLUME 7.8 fl (7.2-11.7); MONO # 1.8 K/uL (0.0-0.8); MONO % 9.9 % (0.0-10.0); NEUT # 14.7 K/uL (1.8-7.0); NEUT % 81.6 % (50.0-75.0)
--- NOTE | 2017-02-15 07:38 | CP.PCM.PN ---
<Lorenzo Rousseau - Last Filed: 02/15/17 07:36> Subjective - Date & Time of Evaluation Date of Evaluation: 02/15/17 Time of Evaluation: 07:10 - Subjective Subjective: General Surgery Pt S&E, NAEO. T-max 100F still with decreased R abd pain. No other C/O at this time Objective - Vital Signs/Intake and Output Vital Signs (last 24 hours): Temp Pulse Resp BP Pulse Ox 99 F 88 18 110/63 96 02/15/17 05:00 02/15/17 05:00 02/15/17 05:00 02/15/17 05:00 02/15/17 05:00 - Medications Medications: Current Medications Acetaminophen (Tylenol 325mg Tab) 650 mg PO Q6 PRN PRN Reason: Fever >100.4 F Acetaminophen (Tylenol 325 Mg Supp) 650 mg [place] Q6 PRN PRN Reason: Fever >100.4 F Clonazepam (Klonopin) 0.5 mg PO BID [facility] Last Admin: 02/14/17 20:21 Dose: 0.5 mg Escitalopram Oxalate (Lexapro) 20 mg PO DAILY [facility] Last Admin: 02/14/17 11:42 Dose: 20 mg Metronidazole (Flagyl 500mg/100ml Ns) 100 mls @ 100 mls/hr IVPB ONCE [facility] Last Admin: 02/14/17 17:36 Dose: 100 mls/hr Metronidazole (Flagyl 500mg/100ml Ns) 100 mls @ 100 mls/hr IVPB Q8 [facility] Last Admin: 02/15/17 00:34 Dose: 100 mls/hr Piperacillin Sod/Tazobactam (Sod 3.375 gm/ Sodium Chloride) 100 mls @ 100 mls/ hr IVPB Q6 [facility] Last Admin: 02/15/17 04:00 Dose: 100 mls/hr Sodium Chloride (Sodium Chloride 0.9%) 1,000 mls @ 125 mls/hr IV .Q8H [facility] Last Admin: 02/14/17 21:24 Dose: Not Given Morphine Sulfate (Morphine) 2 mg IVP Q4 PRN PRN Reason: Pain, moderate (4-7) Last Admin: 02/15/17 03:59 Dose: 2 mg - Labs Labs: 02/15/17 05:35 02/15/17 05:35 PT 13.1 SECONDS (9.6-11.2) H 02/13/17 18:52 INR 1.26 (0.92-1.08) H 02/13/17 18:52 APTT 29.2 SECONDS (23.3-32.5) 02/13/17 18:52 - Constitutional Appears: Non-toxic, No Acute Distress - Head Exam Head Exam: ATRAUMATIC, NORMAL INSPECTION - Eye Exam Eye Exam: EOMI, Normal appearance - ENT Exam ENT Exam: Mucous Membranes Moist, Normal Exam - Respiratory Exam Respiratory Exam: NORMAL BREATHING PATTERN. absent: Chest Wall Tenderness, Decreased Breath Sounds - Cardiovascular Exam Cardiovascular Exam: REGULAR RHYTHM, +S1, +S2 - GI/Abdominal Exam GI & Abdominal Exam: Firm (in lower abd ), Soft (upper abd), Tenderness (in lower abd). absent: Distended, Guarding, Rigid, Rebound - Extremities Exam Extremities Exam: Normal Inspection. absent: Calf Tenderness, Pedal Edema - Neurological Exam Neurological Exam: Alert, Awake, Oriented x3 - Psychiatric Exam Psychiatric exam: Normal Affect, Normal Mood - Skin Skin Exam: Intact, Normal Color, Warm Assessment and Plan - Assessment and Plan (Free Text) Assessment: 27M with colitis and edgar-colonic abscess Plan: - No planned Interventional Radiology procedure - Remain NPO - Analgesia control - IVF - Cont Abx - Pt for repeat CT on 02/17 D/W Dr. Haro <Alvino Haro - Last Filed: 02/15/17 15:21> Subjective - Date & Time of Evaluation Date of Evaluation: 02/15/17 Time of Evaluation: 14:00 - Subjective Subjective: Patient was seen and examined at the bedside. Agree with resident's note above Objective - Vital Signs/Intake and Output Vital Signs (last 24 hours): Temp Pulse Resp BP Pulse Ox 98.3 F 82 18 103/63 98 02/15/17 12:00 02/15/17 12:00 02/15/17 12:00 02/15/17 12:00 02/15/17 12:00 - Medications Medications: Current Medications Acetaminophen (Tylenol 325mg Tab) 650 mg PO Q6 PRN PRN Reason: Fever >100.4 F Acetaminophen (Tylenol 325 Mg Supp) 650 mg [place] Q6 PRN PRN Reason: Fever >100.4 F Clonazepam (Klonopin) 0.5 mg PO BID [facility] Last Admin: 02/15/17 09:13 Dose: 0.5 mg Escitalopram Oxalate (Lexapro) 20 mg PO DAILY [facility] Last Admin: 02/15/17 09:13 Dose: 20 mg Metronidazole (Flagyl 500mg/100ml Ns) 100 mls @ 100 mls/hr IVPB ONCE [facility] Last Admin: 02/14/17 17:36 Dose: 100 mls/hr Metronidazole (Flagyl 500mg/100ml Ns) 100 mls @ 100 mls/hr IVPB Q8 [facility] Last Admin: 02/15/17 09:05 Dose: 100 mls/hr Piperacillin Sod/Tazobactam (Sod 3.375 gm/ Sodium Chloride) 100 mls @ 100 mls/ hr IVPB Q6 [facility] Last Admin: 02/15/17 10:58 Dose: 100 mls/hr Sodium Chloride (Sodium Chloride 0.9%) 1,000 mls @ 125 mls/hr IV .Q8H [facility] Last Admin: 02/15/17 08:04 Dose: 125 mls/hr Morphine Sulfate (Morphine) 2 mg IVP Q4 PRN PRN Reason: Pain, moderate (4-7) Last Admin: 02/15/17 10:55 Dose: 2 mg - Labs Labs: 02/15/17 05:35 02/15/17 05:35 PT 13.1 SECONDS (9.6-11.2) H 02/13/17 18:52 INR 1.26 (0.92-1.08) H 02/13/17 18:52 APTT 29.2 SECONDS (23.3-32.5) 02/13/17 18:52
[2017-02-15] MEDS: Sodium Chloride 0.9% 1,000 ML IV SCH ×3 (08:04→20:59)
--- NOTE | 2017-02-15 10:58 | CP.PCM.PN ---
Subjective - Date & Time of Evaluation Date of Evaluation: 02/15/17 Time of Evaluation: 10:00 - Subjective Subjective: right sided abd pain + Objective - Vital Signs/Intake and Output Vital Signs (last 24 hours): Temp Pulse Resp BP Pulse Ox 99.1 F 80 18 107/65 97 02/15/17 08:00 02/15/17 08:00 02/15/17 08:00 02/15/17 08:00 02/15/17 08:00 - Medications Medications: Current Medications Acetaminophen (Tylenol 325mg Tab) 650 mg PO Q6 PRN PRN Reason: Fever >100.4 F Acetaminophen (Tylenol 325 Mg Supp) 650 mg [place] Q6 PRN PRN Reason: Fever >100.4 F Clonazepam (Klonopin) 0.[address] [facility] Last Admin: 02/15/17 09:13 Dose: 0.5 mg Escitalopram Oxalate (Lexapro) [address] [facility] Last Admin: 02/15/17 09:13 Dose: 20 mg Metronidazole (Flagyl 500mg/100ml Ns) 100 mls @ 100 mls/hr IVPB ONCE [facility] Last Admin: 02/14/17 17:36 Dose: 100 mls/hr Metronidazole (Flagyl 500mg/100ml Ns) 100 mls @ 100 mls/hr IVPB Q8 [facility] Last Admin: 02/15/17 09:05 Dose: 100 mls/hr Piperacillin Sod/Tazobactam (Sod 3.375 gm/ Sodium Chloride) 100 mls @ 100 mls/ hr IVPB Q6 [facility] Last Admin: 02/15/17 04:00 Dose: 100 mls/hr Sodium Chloride (Sodium Chloride 0.9%) 1,000 mls @ 125 mls/hr IV .Q8H [facility] Last Admin: 02/15/17 08:04 Dose: 125 mls/hr Morphine Sulfate (Morphine) 2 mg IVP Q4 PRN PRN Reason: Pain, moderate (4-7) Last Admin: 02/15/17 03:59 Dose: 2 mg - Labs Labs: 02/15/17 05:35 02/15/17 05:35 PT 13.1 SECONDS (9.6-11.2) H 02/13/17 18:52 INR 1.26 (0.92-1.08) H 02/13/17 18:52 APTT 29.2 SECONDS (23.3-32.5) 02/13/17 18:52 - Constitutional Appears: Non-toxic, Chronically Ill - Head Exam Head Exam: NORMOCEPHALIC - Eye Exam Eye Exam: absent: Scleral icterus - ENT Exam ENT Exam: Mucous Membranes Dry - Neck Exam Neck Exam: absent: Lymphadenopathy - Respiratory Exam Respiratory Exam: Decreased Breath Sounds, Clear to Ausculation Bilateral - Cardiovascular Exam Cardiovascular Exam: REGULAR RHYTHM - GI/Abdominal Exam GI & Abdominal Exam: Distended, Soft, Tenderness Assessment and Plan (1) Abscess of sigmoid colon Status: Acute (2) Cystitis Status: Acute
--- NOTE | 2017-02-15 13:04 | CP.PCM.PN ---
<MelissaDora - Last Filed: 02/15/17 12:59> Subjective - Date & Time of Evaluation Date of Evaluation: 02/15/17 Time of Evaluation: 12:59 - Subjective Subjective: Gastroenterology Fellow/PGY4 Progress Note Patient admits to improving lower abdominal pain. Remain s NPO. Admits to having diarrhea. States he is hungry. A 12-point review of systems negative except for as above. Objective - Vital Signs/Intake and Output Vital Signs (last 24 hours): Temp Pulse Resp BP Pulse Ox 98.3 F 82 18 103/63 98 02/15/17 12:00 02/15/17 12:00 02/15/17 12:00 02/15/17 12:00 02/15/17 12:00 - Medications Medications: Current Medications Acetaminophen (Tylenol 325mg Tab) 650 mg PO Q6 PRN PRN Reason: Fever >100.4 F Acetaminophen (Tylenol 325 Mg Supp) 650 mg [place] Q6 PRN PRN Reason: Fever >100.4 F Clonazepam (Klonopin) 0.5 mg PO BID [facility] Last Admin: 02/15/17 09:13 Dose: 0.5 mg Escitalopram Oxalate (Lexapro) 20 mg PO DAILY [facility] Last Admin: 02/15/17 09:13 Dose: 20 mg Metronidazole (Flagyl 500mg/100ml Ns) 100 mls @ 100 mls/hr IVPB ONCE [facility] Last Admin: 02/14/17 17:36 Dose: 100 mls/hr Metronidazole (Flagyl 500mg/100ml Ns) 100 mls @ 100 mls/hr IVPB Q8 [facility] Last Admin: 02/15/17 09:05 Dose: 100 mls/hr Piperacillin Sod/Tazobactam (Sod 3.375 gm/ Sodium Chloride) 100 mls @ 100 mls/ hr IVPB Q6 [facility] Last Admin: 02/15/17 10:58 Dose: 100 mls/hr Sodium Chloride (Sodium Chloride 0.9%) 1,000 mls @ 125 mls/hr IV .Q8H [facility] Last Admin: 02/15/17 08:04 Dose: 125 mls/hr Morphine Sulfate (Morphine) 2 mg IVP Q4 PRN PRN Reason: Pain, moderate (4-7) Last Admin: 02/15/17 10:55 Dose: 2 mg - Labs Labs: 02/15/17 05:35 02/15/17 05:35 PT 13.1 SECONDS (9.6-11.2) H 02/13/17 18:52 INR 1.26 (0.92-1.08) H 02/13/17 18:52 APTT 29.2 SECONDS (23.3-32.5) 02/13/17 18:52 - Constitutional Appears: Non-toxic, No Acute Distress - Head Exam Head Exam: ATRAUMATIC, NORMOCEPHALIC - Eye Exam Eye Exam: EOMI, PERRL Pupil Exam: PERRL. absent: Miosis, Mydriatic - ENT Exam ENT Exam: Mucous Membranes Moist, Normal Oropharynx - Neck Exam Neck Exam: Full ROM, Normal Inspection - Respiratory Exam Respiratory Exam: Clear to Ausculation Bilateral. absent: Rales, Rhonchi, Wheezes - Cardiovascular Exam Cardiovascular Exam: RRR, +S1, +S2. absent: Gallop, Rubs - GI/Abdominal Exam GI & Abdominal Exam: Distended, Soft, Tenderness, Normal Bowel Sounds. absent: Guarding, Rigid, Organomegaly, Rebound Additional comments: B/L LQ discomfort to palpation, distended lower abdomen, firm to touch - Extremities Exam Extremities Exam: Full ROM. absent: Pedal Edema - Neurological Exam Neurological Exam: Alert, Awake - Psychiatric Exam Psychiatric exam: Normal Affect, Normal Mood - Skin Skin Exam: Dry, Intact, Normal Color, Warm Assessment and Plan - Assessment and Plan (Free Text) Assessment: 27 year old male with history of Anxiety presenting with abdominal pain. Active treatment of pelvic multiloculated 6.7x6x6.2cm abscess, associated foci of free air adjacent to thickened sigmoid colon, and fistulous communication to separate 3.3x4.2cm cystic collection in pelvis likely secondary to fluid tracking from abscess site. Plan: >trial clear liquids >continue Zosyn, Flagyl >supportive care: pain control >Blood cultures- no growth at 1 day >surgery following- appreciate recommendations >awaiting bed availability for transfer to [facility] with established private central sterilization technician >further recommendations based on clinical course <Sangeeta Ramos MD - Last Filed: 02/15/17 18:25> Objective - Vital Signs/Intake and Output Vital Signs (last 24 hours): Temp Pulse Resp BP Pulse Ox 98.6 F 57 L 20 111/70 97 04/18/17 15:57 02/15/17 15:57 02/15/17 15:57 02/15/17 15:57 02/15/17 15:57 - Medications Medications: Current Medications Acetaminophen (Tylenol 325mg Tab) 650 mg PO Q6 PRN PRN Reason: Fever >100.4 F Acetaminophen (Tylenol 325 Mg Supp) 650 mg [place] Q6 PRN PRN Reason: Fever >100.4 F Clonazepam (Klonopin) 0.5 mg PO BID [facility] Last Admin: 02/15/17 17:37 Dose: 0.5 mg Escitalopram Oxalate (Lexapro) 20 mg PO DAILY [facility] Last Admin: 02/15/17 09:13 Dose: 20 mg Metronidazole (Flagyl 500mg/100ml Ns) 100 mls @ 100 mls/hr IVPB ONCE [facility] Last Admin: 02/14/17 17:36 Dose: 100 mls/hr Metronidazole (Flagyl 500mg/100ml Ns) 100 mls @ 100 mls/hr IVPB Q8 [facility] Last Admin: 02/15/17 17:28 Dose: 100 mls/hr Piperacillin Sod/Tazobactam (Sod 3.375 gm/ Sodium Chloride) 100 mls @ 100 mls/ hr IVPB Q6 [facility] Last Admin: 02/15/17 10:58 Dose: 100 mls/hr Sodium Chloride (Sodium Chloride 0.9%) 1,000 mls @ 125 mls/hr IV .Q8H [facility] Last Admin: 02/15/17 15:49 Dose: 125 mls/hr Morphine Sulfate (Morphine) 2 mg IVP Q4 PRN PRN Reason: Pain, moderate (4-7) Last Admin: 02/15/17 15:48 Dose: 2 mg - Labs Labs: 02/15/17 05:35 02/15/17 05:35 PT 13.1 SECONDS (9.6-11.2) H 02/13/17 18:52 INR 1.26 (0.92-1.08) H 02/13/17 18:52 APTT 29.2 SECONDS (23.3-32.5) 02/13/17 18:52 Attending/Attestation - Attestation I have personally seen and examined this patient.: Yes I have fully participated in the care of the patient.: Yes I have reviewed all pertinent clinical information, including history, physical exam and plan: Yes Notes (Text): 02/15/17 18:22 Patient seen with GI fellow. This is a 27 year old male presenting with abdominal pain found to have SIRS in setting of pelvic multiloculated 6.7x 6x 6.2cm abscess, associated foci of free air adjacent to thickened sigmoid colon, and fistulous communication to separate 3.3x4.2cm cystic collection in pelvis likely secondary to fluid tracking from abscess site. Today his leukocytosis downtrending with no fever spikes. abdominal exam benign. discussed with GI at [facility] Dr Patel who would like patient to be transferred. Not amenable to IR drainage. Continue broad spectru,m antibiotics with anaerobic coverage and follow fever and wbc curve. Discussed with surgical service.
--- NOTE | 2017-02-15 20:59 | CP.PCM.PN ---
Subjective - Date & Time of Evaluation Date of Evaluation: 02/15/17 Time of Evaluation: 22:22 - Subjective Subjective: GI ID and surgery notes appreciated Pt feels better WBC decreasing Objective - Vital Signs/Intake and Output Vital Signs (last 24 hours): Temp Pulse Resp BP Pulse Ox 98.8 F 73 20 112/66 96 02/15/17 19:14 02/15/17 19:14 02/15/17 19:14 02/15/17 19:14 02/15/17 19:14 Intake and Output: 02/15/17 02/16/17 18:59 06:59 Intake Total 1400 Balance 1400 - Medications Medications: Current Medications Acetaminophen (Tylenol 325mg Tab) 650 mg PO Q6 PRN PRN Reason: Fever >100.4 F Acetaminophen (Tylenol 325 Mg Supp) 650 mg [place] Q6 PRN PRN Reason: Fever >100.4 F Clonazepam (Klonopin) 0.5 mg PO BID [facility] Last Admin: 02/15/17 17:37 Dose: 0.5 mg Escitalopram Oxalate (Lexapro) 20 mg PO DAILY [facility] Last Admin: 02/15/17 09:13 Dose: 20 mg Metronidazole (Flagyl 500mg/100ml Ns) 100 mls @ 100 mls/hr IVPB ONCE [facility] Last Admin: 02/14/17 17:36 Dose: 100 mls/hr Metronidazole (Flagyl 500mg/100ml Ns) 100 mls @ 100 mls/hr IVPB Q8 [facility] Last Admin: 02/15/17 17:28 Dose: 100 mls/hr Piperacillin Sod/Tazobactam (Sod 3.375 gm/ Sodium Chloride) 100 mls @ 100 mls/ hr IVPB Q6 [facility] Last Admin: 02/15/17 18:47 Dose: 100 mls/hr Sodium Chloride (Sodium Chloride 0.9%) 1,000 mls @ 125 mls/hr IV .Q8H [facility] Last Admin: 02/15/17 15:49 Dose: 125 mls/hr Morphine Sulfate (Morphine) 2 mg IVP Q4 PRN PRN Reason: Pain, moderate (4-7) Last Admin: 02/15/17 20:54 Dose: 2 mg - Labs Labs: 02/15/17 05:35 02/15/17 05:35 PT 13.1 SECONDS (9.6-11.2) H 02/13/17 18:52 INR 1.26 (0.92-1.08) H 02/13/17 18:52 APTT 29.2 SECONDS (23.3-32.5) 02/13/17 18:52 - Respiratory Exam Respiratory Exam: NORMAL BREATHING PATTERN - Cardiovascular Exam Cardiovascular Exam: REGULAR RHYTHM - GI/Abdominal Exam GI & Abdominal Exam: Normal Bowel Sounds Assessment and Plan - Assessment and Plan (Free Text) Assessment: Abdominal pain with elevated WBC CT scan ?? Abscess? IBD? Cystitis? Surgery GI ID ABX IVF NPO Pain meds Hematuria CT scan cystitis 2 to above ? Transfer to [facility] D/W family and GI at [facility]
[2017-02-16] MEDS: metroNIDAZOLE 500mg/100ml NS 100 ML IVPB SCH ×5 (01:23→18:05)
[2017-02-16] MEDS: Piperacillin/Tazobact 3.375 GM in Sodium Chloride 0.9% 100 ML IVPB SCH ×4 (04:35→22:41)
[2017-02-16] MEDS: Sodium Chloride 0.9% 1,000 ML IV SCH ×2 (04:36→18:02)
[2017-02-16 06:49] LABS: BASO # 0.1 K/uL (0.0-0.2); BASO % 0.4 % (0.0-2.0); EOS % 0.3 % (0.0-4.0); HEMATOCRIT 32.7 % (35.0-51.0); LYMPH # 1.8 K/uL (1.0-4.3); LYMPH % 12.8 % (20.0-40.0); MEAN CELL VOLUME 89.8 fl (80.0-94.0); MEAN CORPUSCULAR HEMOGLOBIN 29.8 pg (27.0-31.0); MEAN CORPUSCULAR HGB CONC 33.2 g/dL (33.0-37.0); MEAN PLATELET VOLUME 7.7 fl (7.2-11.7); MONO # 1.5 K/uL (0.0-0.8); MONO % 10.6 % (0.0-10.0); NEUT # 10.5 K/uL (1.8-7.0); NEUT % 75.9 % (50.0-75.0); NRBC % 0.1 % (0.0-0.0); RED CELL DISTRIBUTION WIDTH 12.7 % (11.5-14.5); WHITE BLOOD COUNT 13.9 K/uL (4.8-10.8)
[2017-02-16 07:12] LABS: ALB/GLOB RATIO 0.9 (1.0-2.1); ALKALINE PHOSPHATASE 60 U/L (38-126); ALT/SGPT 27 U/L (21-72); AST/SGOT 13 U/L (17-59); BILIRUBIN,TOTAL 0.5 mg/dl (0.2-1.3); BLOOD UREA NITROGEN 5 mg/dl (9-20); CALCIUM 8.6 mg/dL (8.4-10.2); CARBON DIOXIDE 23 mmol/L (22-30); CHLORIDE 102 mmol/L (98-107); GFR AFRICAN-AMERICAN > 60; GLUCOSE,RANDOM 76 mg/dL (75-110); POTASSIUM 3.6 MMOL/L (3.6-5.0); SODIUM 142 mmol/l (132-148)
--- NOTE | 2017-02-16 08:02 | CP.PCM.PN ---
<Thelma Turcios - Last Filed: 02/16/17 08:00> Subjective - Date & Time of Evaluation Date of Evaluation: 02/16/17 Time of Evaluation: 08:00 - Subjective Subjective: General Surgery - Dr. Haro Pt [employer] [facility]. Pt states his pain is improving. He is hungry and denies any N/ V, F/C, SOB/Cp. Objective - Vital Signs/Intake and Output Vital Signs (last 24 hours): Temp Pulse Resp BP Pulse Ox 98.3 F 79 20 101/58 L 96 02/16/17 05:00 02/16/17 05:00 02/16/17 05:00 02/16/17 05:00 02/16/17 05:00 - Medications Medications: Current Medications Acetaminophen (Tylenol 325mg Tab) 650 mg PO Q6 PRN PRN Reason: Fever >100.4 F Acetaminophen (Tylenol 325 Mg Supp) 650 mg [place] Q6 PRN PRN Reason: Fever >100.4 F Clonazepam (Klonopin) 0.5 mg PO BID [facility] Last Admin: 02/15/17 17:37 Dose: 0.5 mg Escitalopram Oxalate (Lexapro) 20 mg PO DAILY [facility] Last Admin: 02/15/17 09:13 Dose: 20 mg Metronidazole (Flagyl 500mg/100ml Ns) 100 mls @ 100 mls/hr IVPB ONCE [facility] Last Admin: 02/14/17 17:36 Dose: 100 mls/hr Metronidazole (Flagyl 500mg/100ml Ns) 100 mls @ 100 mls/hr IVPB Q8 [facility] Last Admin: 02/16/17 01:23 Dose: 100 mls/hr Piperacillin Sod/Tazobactam (Sod 3.375 gm/ Sodium Chloride) 100 mls @ 100 mls/ hr IVPB Q6 [facility] Last Admin: 02/16/17 04:35 Dose: 100 mls/hr Sodium Chloride (Sodium Chloride 0.9%) 1,000 mls @ 125 mls/hr IV .Q8H [facility] Last Admin: 02/16/17 04:36 Dose: 125 mls/hr Morphine Sulfate (Morphine) 2 mg IVP Q4 PRN PRN Reason: Pain, moderate (4-7) Last Admin: 02/16/17 01:21 Dose: 2 mg - Labs Labs: 02/16/17 04:45 02/16/17 04:45 PT 13.1 SECONDS (9.6-11.2) H 02/13/17 18:52 INR 1.26 (0.92-1.08) H 02/13/17 18:52 APTT 29.2 SECONDS (23.3-32.5) 02/13/17 18:52 - Constitutional Appears: No Acute Distress - Head Exam Head Exam: ATRAUMATIC, NORMAL INSPECTION, NORMOCEPHALIC - Eye Exam Eye Exam: Normal appearance - Respiratory Exam Respiratory Exam: NORMAL BREATHING PATTERN. absent: Respiratory Distress - GI/Abdominal Exam GI & Abdominal Exam: Firm (suprapubic and LLQ), Soft, Tenderness (mild). absent : Distended, Guarding, Rigid, Rebound - Neurological Exam Neurological Exam: Alert, Oriented x3 - Psychiatric Exam Psychiatric exam: Normal Affect, Normal Mood - Skin Skin Exam: Dry, Intact Assessment and Plan - Assessment and Plan (Free Text) Assessment: 27M with colitis and edgar-colonic abscess Plan: -Continue IV Abx -WBC trending down, 13.9 today -Continue IVF -Pain control -Repeat CT tomorrow DW Dr. Tahir Turcios PGY2 <Alvino Haro - Last Filed: 02/16/17 12:55> Subjective - Date & Time of Evaluation Date of Evaluation: 02/16/17 Time of Evaluation: 12:45 - Subjective Subjective: Patient was seen and examined at the bedside. Agree with resident's note above. Feels much better. Objective - Vital Signs/Intake and Output Vital Signs (last 24 hours): Temp Pulse Resp BP Pulse Ox 98.5 F 95 H 18 116/72 97 02/16/17 08:00 02/16/17 09:00 02/16/17 08:00 02/16/17 08:00 02/16/17 08:00 - Medications Medications: Current Medications Acetaminophen (Tylenol 325 Mg Supp) 650 mg [place] Q6 PRN PRN Reason: Fever >100.4 F Acetaminophen (Tylenol 325mg Tab) 650 mg PO Q6 PRN PRN Reason: Headache Last Admin: 02/16/17 11:24 Dose: 650 mg Clonazepam (Klonopin) 0.5 mg PO BID [facility] Last Admin: 02/16/17 08:50 Dose: 0.5 mg Escitalopram Oxalate (Lexapro) 20 mg PO DAILY [facility] Last Admin: 02/16/17 09:05 Dose: 20 mg Metronidazole (Flagyl 500mg/100ml Ns) 100 mls @ 100 mls/hr IVPB ONCE [facility] Last Admin: 02/14/17 17:36 Dose: 100 mls/hr Metronidazole (Flagyl 500mg/100ml Ns) 100 mls @ 100 mls/hr IVPB Q8 [facility] Last Admin: 02/16/17 11:13 Dose: 100 mls/hr Piperacillin Sod/Tazobactam (Sod 3.375 gm/ Sodium Chloride) 100 mls @ 100 mls/ hr IVPB Q6 [facility] Last Admin: 02/16/17 11:15 Dose: 100 mls/hr Sodium Chloride (Sodium Chloride 0.9%) 1,000 mls @ 125 mls/hr IV .Q8H [facility] Last Admin: 02/16/17 04:36 Dose: 125 mls/hr Morphine Sulfate (Morphine) 2 mg IVP Q4 PRN PRN Reason: Pain, moderate (4-7) Last Admin: 02/16/17 08:52 Dose: 2 mg - Labs Labs: 02/16/17 04:45 02/16/17 04:45 PT 13.1 SECONDS (9.6-11.2) H 02/13/17 18:52 INR 1.26 (0.92-1.08) H 02/13/17 18:52 APTT 29.2 SECONDS (23.3-32.5) 02/13/17 18:52 Assessment and Plan - Assessment and Plan (Free Text) Plan: - Start clear liquid diet - Pain control - IV fluids - Continue antibiotics - Awaiting transfer to [facility]
--- NOTE | 2017-02-16 14:42 | CP.PCM.PN ---
Subjective - Date & Time of Evaluation Date of Evaluation: 02/16/17 Time of Evaluation: 14:37 - Subjective Subjective: RFV: Colitis S: Feels better today. Pain improved. No vomiting or diarrhea. Had a little jello this afternoon. Afebrile. Objective - Vital Signs/Intake and Output Vital Signs (last 24 hours): Temp Pulse Resp BP Pulse Ox 98.3 F 71 18 110/71 96 02/16/17 12:00 02/16/17 12:00 02/16/17 12:00 02/16/17 12:00 02/16/17 12:00 - Medications Medications: Current Medications Acetaminophen (Tylenol 325 Mg Supp) 650 mg [place] Q6 PRN PRN Reason: Fever >100.4 F Acetaminophen (Tylenol 325mg Tab) 650 mg PO Q6 PRN PRN Reason: Headache Last Admin: 02/16/17 11:24 Dose: 650 mg Clonazepam (Klonopin) 0.5 mg PO BID [facility] Last Admin: 02/16/17 08:50 Dose: 0.5 mg Escitalopram Oxalate (Lexapro) 20 mg PO DAILY [facility] Last Admin: 02/16/17 09:05 Dose: 20 mg Metronidazole (Flagyl 500mg/100ml Ns) 100 mls @ 100 mls/hr IVPB ONCE [facility] Last Admin: 02/14/17 17:36 Dose: 100 mls/hr Metronidazole (Flagyl 500mg/100ml Ns) 100 mls @ 100 mls/hr IVPB Q8 [facility] Last Admin: 02/16/17 11:13 Dose: 100 mls/hr Piperacillin Sod/Tazobactam (Sod 3.375 gm/ Sodium Chloride) 100 mls @ 100 mls/ hr IVPB Q6 [facility] Last Admin: 02/16/17 11:15 Dose: 100 mls/hr Sodium Chloride (Sodium Chloride 0.9%) 1,000 mls @ 125 mls/hr IV .Q8H [facility] Last Admin: 02/16/17 04:36 Dose: 125 mls/hr Morphine Sulfate (Morphine) 2 mg IVP Q4 PRN PRN Reason: Pain, moderate (4-7) Last Admin: 02/16/17 14:35 Dose: 2 mg - Labs Labs: 02/16/17 04:45 02/16/17 04:45 PT 13.1 SECONDS (9.6-11.2) H 02/13/17 18:52 INR 1.26 (0.92-1.08) H 02/13/17 18:52 APTT 29.2 SECONDS (23.3-32.5) 02/13/17 18:52 - Constitutional Appears: Well, No Acute Distress - Head Exam Head Exam: ATRAUMATIC, NORMOCEPHALIC - Eye Exam Eye Exam: Normal appearance. absent: Scleral icterus - ENT Exam ENT Exam: Mucous Membranes Moist, Normal Oropharynx - Neck Exam Neck Exam: absent: Lymphadenopathy, Thyromegaly - Respiratory Exam Respiratory Exam: Clear to Ausculation Bilateral, NORMAL BREATHING PATTERN. absent: Respiratory Distress - Cardiovascular Exam Cardiovascular Exam: REGULAR RHYTHM, +S1, +S2 - GI/Abdominal Exam GI & Abdominal Exam: Soft. absent: Distended, Firm, Guarding, Rigid, Tenderness - Extremities Exam Extremities Exam: absent: Pedal Edema - Neurological Exam Neurological Exam: Alert, Oriented x3 - Skin Skin Exam: Dry, Normal Color, Warm Assessment and Plan - Assessment and Plan (Free Text) Assessment: 27 year old male presenting with abdominal pain found to have SIRS in setting of pelvic multiloculated 6.7x 6x 6.2cm abscess, associated foci of free air adjacent to thickened sigmoid colon, and fistulous communication to separate 3.3x4.2cm cystic collection in pelvis likely secondary to fluid tracking from abscess site. 1. Sandhya-colonic abscess 2. Colitis Plan: -currently etiology is unclear -ddx includes Crohn's disease, perforated diverticulitis with abscess -improving with IV antibiotics -WBC down to 13.9 -afebrile -started clears this afternoon -discussed the case with Dr. Urias, Surgery, GI at [facility] Dr. Patel, as well as extensively with the patient and mother -patient is awaiting transfer to [facility] for further care -no need to repeat CT scan unless circumstances change, as it will probably be repeated at [facility] -per Dr. Patel, hospital to hospital transfer may not be feasible in a timely fashion and if the patient is clinically stable, it would be acceptable to discharge the patient tomorrow and he can go to [facility] and Dr. Patel can take over care there
--- NOTE | 2017-02-16 17:25 | CP.PCM.PN ---
Subjective - Date & Time of Evaluation Date of Evaluation: 02/16/17 Time of Evaluation: 09:00 - Subjective Subjective: less tender no fever wbc resolving will likely need long course of IV rx for presumed diverticulitis with out pt gi follow up Objective - Vital Signs/Intake and Output Vital Signs (last 24 hours): Temp Pulse Resp BP Pulse Ox 99 F 81 20 110/66 97 02/16/17 15:57 02/16/17 15:57 02/16/17 15:57 02/16/17 15:57 02/16/17 15:57 - Medications Medications: Current Medications Acetaminophen (Tylenol 325 Mg Supp) 650 mg [place] Q6 PRN PRN Reason: Fever >100.4 F Acetaminophen (Tylenol 325mg Tab) 650 mg PO Q6 PRN PRN Reason: Headache Last Admin: 02/16/17 11:24 Dose: 650 mg Clonazepam (Klonopin) 0.5 mg PO 0900,2100 [facility] Escitalopram Oxalate (Lexapro) 20 mg PO DAILY [facility] Last Admin: 02/16/17 09:05 Dose: 20 mg Metronidazole (Flagyl 500mg/100ml Ns) 100 mls @ 100 mls/hr IVPB ONCE [facility] Last Admin: 02/16/17 16:50 Dose: 100 mls/hr Metronidazole (Flagyl 500mg/100ml Ns) 100 mls @ 100 mls/hr IVPB Q8 [facility] Last Admin: 02/16/17 11:13 Dose: 100 mls/hr Piperacillin Sod/Tazobactam (Sod 3.375 gm/ Sodium Chloride) 100 mls @ 100 mls/ hr IVPB Q6 [facility] Last Admin: 02/16/17 16:50 Dose: 100 mls/hr Sodium Chloride (Sodium Chloride 0.9%) 1,000 mls @ 125 mls/hr IV .Q8H [facility] Last Admin: 02/16/17 04:36 Dose: 125 mls/hr Morphine Sulfate (Morphine) 2 mg IVP Q4 PRN PRN Reason: Pain, moderate (4-7) Last Admin: 02/16/17 14:35 Dose: 2 mg - Labs Labs: 02/16/17 04:45 02/16/17 04:45 PT 13.1 SECONDS (9.6-11.2) H 02/13/17 18:52 INR 1.26 (0.92-1.08) H 02/13/17 18:52 APTT 29.2 SECONDS (23.3-32.5) 02/13/17 18:52 - Constitutional Appears: Non-toxic, Chronically Ill - Head Exam Head Exam: NORMOCEPHALIC - Eye Exam Eye Exam: PERRL. absent: Scleral icterus - ENT Exam ENT Exam: Mucous Membranes Dry - Neck Exam Neck Exam: absent: Lymphadenopathy - Respiratory Exam Respiratory Exam: Decreased Breath Sounds, Rhonchi - Cardiovascular Exam Cardiovascular Exam: REGULAR RHYTHM, +S1, +S2 - GI/Abdominal Exam GI & Abdominal Exam: Distended, Soft. absent: Tenderness - Rectal Exam Rectal Exam: Deferred - Exam Exam: NORMAL INSPECTION - Extremities Exam Extremities Exam: absent: Pedal Edema - Back Exam Back Exam: absent: CVA tenderness (L), CVA tenderness (R) - Neurological Exam Neurological Exam: Alert, Awake, Oriented x3 Neuro motor strength exam: Left Upper Extremity: 5, Right Upper Extremity: 5, Left Lower Extremity: 5, Right Lower Extremity: 5 Assessment and Plan (1) Abscess of sigmoid colon Status: Acute (2) Cystitis Status: Acute - Assessment and Plan (Free Text) Assessment: cont iv rx
[2017-02-16 20:01] LABS: RBC URINE 1 /hpf (0-3); URINE BILIRUBIN NEGATIVE (NEGATIVE); URINE BLOOD SMALL (NEGATIVE); URINE COLOR YELLOW (YELLOW); URINE GLUCOSE (UA) NEG (Normal); URINE KETONE 20 mg/dL (NEGATIVE); URINE LEUKOCYTE ESTERASE TRACE Leu/uL (Negative); URINE PROTEIN NEGATIVE (NEGATIVE); URINE UROBILINOGEN 0.2-1.0 mg/dL (0.2-1.0); WBC URINE < 1 /hpf (0-5)
--- NOTE | 2017-02-16 20:35 | CP.PCM.PN ---
Subjective - Date & Time of Evaluation Date of Evaluation: 02/16/17 Time of Evaluation: 22:22 - Subjective Subjective: Continues to improve Objective - Vital Signs/Intake and Output Vital Signs (last 24 hours): Temp Pulse Resp BP Pulse Ox 98.6 F 69 20 118/71 97 02/16/17 19:07 02/16/17 19:07 02/16/17 19:07 02/16/17 19:07 02/16/17 19:07 Intake and Output: 02/16/17 02/17/17 18:59 06:59 Intake Total 2200 Balance 2200 - Medications Medications: Current Medications Acetaminophen (Tylenol 325 Mg Supp) 650 mg [place] Q6 PRN PRN Reason: Fever >100.4 F Acetaminophen (Tylenol 325mg Tab) 650 mg PO Q6 PRN PRN Reason: Headache Last Admin: 02/16/17 11:24 Dose: 650 mg Clonazepam (Klonopin) 0.5 mg PO 0900,2100 [facility] Escitalopram Oxalate (Lexapro) 20 mg PO DAILY [facility] Last Admin: 02/16/17 09:05 Dose: 20 mg Metronidazole (Flagyl 500mg/100ml Ns) 100 mls @ 100 mls/hr IVPB Q8 [facility] Last Admin: 02/16/17 18:05 Dose: 100 mls/hr Piperacillin Sod/Tazobactam (Sod 3.375 gm/ Sodium Chloride) 100 mls @ 100 mls/ hr IVPB Q6 [facility] Last Admin: 02/16/17 16:50 Dose: 100 mls/hr Sodium Chloride (Sodium Chloride 0.9%) 1,000 mls @ 125 mls/hr IV .Q8H [facility] Last Admin: 02/16/17 18:02 Dose: 125 mls/hr Morphine Sulfate (Morphine) 2 mg IVP Q4 PRN PRN Reason: Pain, moderate (4-7) Last Admin: 02/16/17 20:20 Dose: 2 mg - Labs Labs: 02/16/17 04:45 02/16/17 04:45 PT 13.1 SECONDS (9.6-11.2) H 02/13/17 18:52 INR 1.26 (0.92-1.08) H 02/13/17 18:52 APTT 29.2 SECONDS (23.3-32.5) 02/13/17 18:52 - Respiratory Exam Respiratory Exam: Wheezes, NORMAL BREATHING PATTERN - Cardiovascular Exam Cardiovascular Exam: REGULAR RHYTHM - GI/Abdominal Exam GI & Abdominal Exam: Normal Bowel Sounds Assessment and Plan - Assessment and Plan (Free Text) Assessment: Abdominal pain with elevated WBC CT scan ?? Abscess? IBD? Diverticulitis? Cystitis? Surgery GI ID [id number] IVF clear liquids Hematuria calcium oxylate crystals CT scan cystitis 2 to above ? Urology Transfer to [facility] D/W family and GI at [facility]
--- NOTE | 2017-02-16 21:27 | CON ---
DATE: 02/16/2017 TIME OF CONSULTATION: Roughly 6:30 p.m. BRIEF HISTORY: The patient is a 27-year-old white male who presented to [facility] with sepsis and abdominal pain. An abdominopelvic CT showed multiple abscesses in the pelvis w hich appeared to be emanating from the sigmoid colon, with inflammatory changes affecting the sigmoid colon, and sparing the rectum and the descending colon. This consult was called because of the find ing of calcium oxalate crystals seen in the urine during this hospitalization. The CAT scan also philomena wed a small fistulous tract with the larger inflammatory component. The kidneys and ureters showed j ust mild fullness of both collecting systems, likely related to the inflammatory process affecting tabitha th distal ureters. The bladder wall is diffusely thickened, and there are inflammatory changes anter iorly along the midline consistent with inflammation. The patient gives a prior history of being treated for urinary tract infection in college several yea rs ago, without any further episodes. He currently denies dysuria, gross hematuria, or renal colic. He denies any prior surgical history. His only other past medical history is that of anxiety and scoliosis as a child. He denies any prior history of any kidney disease or kidney stones. No history of any sexually transmitted diseases. PHYSICAL EXAMINATION: Today he is a well-developed, well-nourished white male. He is alert. He is oriented. HENT EXAMINATION: Grossly within normal limits. NECK: Supple. Thyroid not palpable. ABDOMEN: Currently soft. Currently mildly tender. No CVA tenderness. GENITALIA: The patient is circumcised, with normal glanular meatus without any rashes or lesions visualized. Testes are down bilaterally, nontender, without any masses. RECTAL: Normal rectal tone without fluctuance or masses. Prostate is average size, smooth, symmetri mevlin, nontender without nodules or indurations, with a palpable median sulcus. His CBC is improved from his admission CBC, which showed a WBC count of 24.4, and a hemoglobin of 12. 3, and hematocrit of 38.0, and today on 02/16/2017 his CBC: WBC count is 13.9, hemoglobin 10.8, and hematocrit 32.7. Platelet count today is 357,000. His coag profile shows a PT of 13.1, INR of 1.26, and a PTT of 29.2. His chem profile today, 02/16/2017, shows a sodium of 142, potassium 3.6, chlori de 102, CO2 of 23, BUN and creatinine of 5 and 0.7 respectively, with a GFR of greater than 60. Sneads om glucose was 76. Calcium 8.6. Total bilirubin 0.5. AST was 13, ALT 27, alk phos was 60. Lipase was 0.9. Urinalysis on 02/13/2017 showed the color was andrés, the clarity was slightly cloudy, pH was 5.0, spe cific gravity 1.025, protein was 30, glucose was negative, ketones were 20, blood was small, nitrite was negative, bilirubin was negative. There was 0.2 to 1.0 urobilinogen. Leukocyte esterase was neg ative. There were 25 RBCs and 7 WBCs per high-power field, with many oxalate crystals, rare bacteria . Urine culture on 02/14/2017 showed no growth. Blood cultures also showed no growth after 3 days, starting on the 02/13/2017. DIAGNOSTIC IMPRESSION: 1. Calcium oxalate crystals in the urine. 2. Microscopic hematuria. Abdominopelvic CT negative for stones, hydronephrosis, or renal masses. Plan for this patient is just to repeat a urine analysis for this patient at this time. Dario Merritt MD cc: [id number] TT: 02/16/2017 21:26:56 Confirmation # [id number] Dictation # [id number] frankie
[2017-02-17] MEDS: Sodium Chloride 0.9% 1,000 ML IV SCH ×2 (01:52→07:30)
[2017-02-17] MEDS: metroNIDAZOLE 500mg/100ml NS 100 ML IVPB SCH ×2 (01:54→08:47)
[2017-02-17] MEDS: Piperacillin/Tazobact 3.375 GM in Sodium Chloride 0.9% 100 ML IVPB SCH ×2 (05:02→10:20)
[2017-02-17 05:34] LABS: BASO # 0.1 K/uL (0.0-0.2); BASO % 0.5 % (0.0-2.0); EOS # 0.1 K/uL (0.0-0.7); EOS % 0.7 % (0.0-4.0); HEMATOCRIT 34.1 % (35.0-51.0); LYMPH # 1.6 K/uL (1.0-4.3); LYMPH % 14.4 % (20.0-40.0); MEAN CELL VOLUME 89.9 fl (80.0-94.0); MEAN CORPUSCULAR HEMOGLOBIN 29.8 pg (27.0-31.0); MEAN CORPUSCULAR HGB CONC 33.1 g/dL (33.0-37.0); MEAN PLATELET VOLUME 7.7 fl (7.2-11.7); MONO # 1.1 K/uL (0.0-0.8); MONO % 9.7 % (0.0-10.0); NEUT # 8.4 K/uL (1.8-7.0); NEUT % 74.7 % (50.0-75.0); RED CELL DISTRIBUTION WIDTH 12.6 % (11.5-14.5); WHITE BLOOD COUNT 11.2 K/uL (4.8-10.8)
[2017-02-17 08:20] VITALS: BP 119/75; RESP 18; TEMP 98.3; O2SAT 96
--- NOTE | 2017-02-17 10:36 | CP.PCM.PN ---
Subjective - Date & Time of Evaluation Date of Evaluation: 02/17/17 Time of Evaluation: 09:45 - Subjective Subjective: General Surgery Pt S&E, tolerating diet. minimal pain. ambulating. Objective - Vital Signs/Intake and Output Vital Signs (last 24 hours): Temp Pulse Resp BP Pulse Ox 98.3 F 56 L 18 119/75 96 02/17/17 08:00 02/17/17 08:00 02/17/17 08:00 02/17/17 08:00 02/17/17 08:00 - Medications Medications: Current Medications Acetaminophen (Tylenol 325 Mg Supp) 650 mg [place] Q6 PRN PRN Reason: Fever >100.4 F Acetaminophen (Tylenol 325mg Tab) 650 mg PO Q6 PRN PRN Reason: Headache Last Admin: 02/16/17 11:24 Dose: 650 mg Clonazepam (Klonopin) 0.5 mg PO 0900,2100 [facility] Last Admin: 02/17/17 08:50 Dose: 0.5 mg Escitalopram Oxalate (Lexapro) 20 mg PO DAILY [facility] Last Admin: 02/17/17 08:47 Dose: 20 mg Metronidazole (Flagyl 500mg/100ml Ns) 100 mls @ 100 mls/hr IVPB Q8 [facility] Last Admin: 02/17/17 08:47 Dose: 100 mls/hr Piperacillin Sod/Tazobactam (Sod 3.375 gm/ Sodium Chloride) 100 mls @ 100 mls/ hr IVPB Q6 [facility] Last Admin: 02/17/17 10:20 Dose: 100 mls/hr Sodium Chloride (Sodium Chloride 0.9%) 1,000 mls @ 125 mls/hr IV .Q8H [facility] Last Admin: 02/17/17 07:30 Dose: 125 mls/hr Morphine Sulfate (Morphine) 2 mg IVP Q4 PRN PRN Reason: Pain, moderate (4-7) Last Admin: 02/17/17 05:07 Dose: 2 mg - Labs Labs: 02/17/17 04:10 02/16/17 04:45 PT 13.1 SECONDS (9.6-11.2) H 02/13/17 18:52 INR 1.26 (0.92-1.08) H 02/13/17 18:52 APTT 29.2 SECONDS (23.3-32.5) 02/13/17 18:52 - Constitutional Appears: Non-toxic, No Acute Distress - Head Exam Head Exam: ATRAUMATIC, NORMOCEPHALIC - Eye Exam Eye Exam: EOMI. absent: Scleral icterus - GI/Abdominal Exam GI & Abdominal Exam: Guarding (mild), Soft, Tenderness (mild in suprapubic area) . absent: Distended, Firm, Rigid - Neurological Exam Neurological Exam: Alert, Awake, Oriented x3 - Skin Skin Exam: Dry, Warm Assessment and Plan - Assessment and Plan (Free Text) Assessment: 27M with colitis and edgar-colonic abscess Plan: -Continue IV Abx -WBC trending down, 11.2 today -Continue IVF -Pain control -Per Mother, awaiting DC by primary. Will follow up with his GI Doctor within the next week D/W Dr. Tahir Carmen PGY3
[2017-02-17 10:41] VITALS: PULSE 73
--- NOTE | 2017-02-17 10:52 | CP.PCM.PCO ---
Assessment/Plan - Assessment/Plan Plan (Free Text): Dr Rachel ARROYO rounded earlier this morning. Cleared the patient for discharge as discussed with family yesterday. Will follow up with Dr Patel at [facility] for follow up CT scan and further management. Discussed with dr au who agrees with DC today. WBC trending down, 11.2 today PO antibiotics rx will be given. DIscussed with patient and mother. - Problems Patient Problems: Problem List (Active/Current) Problem Status Priority Diagnosed Code Abscess of sigmoid colon Acute K63.0 Cystitis Acute N30.90 DVT prophylaxis Acute [id number]
--- NOTE | 2017-02-17 13:48 | CP.PCM.PN ---
Subjective - Date & Time of Evaluation Date of Evaluation: 02/17/17 Time of Evaluation: 08:00 - Subjective Subjective: Patient seen at bedside. No overnight events. Feels fine and comfortable. Tolerated clear liquid diet yesterday. No fever, nausea, vomiting Objective - Vital Signs/Intake and Output Vital Signs (last 24 hours): Temp Pulse Resp BP Pulse Ox 98.3 F 73 18 119/75 96 02/17/17 08:00 02/17/17 09:00 02/17/17 08:00 02/17/17 08:00 02/17/17 08:00 - Medications Medications: Current Medications Acetaminophen (Tylenol 325 Mg Supp) 650 mg [place] Q6 PRN PRN Reason: Fever >100.4 F Acetaminophen (Tylenol 325mg Tab) 650 mg PO Q6 PRN PRN Reason: Headache Last Admin: 02/16/17 11:24 Dose: 650 mg Clonazepam (Klonopin) 0.5 mg PO 0900,2100 [facility] Last Admin: 02/17/17 08:50 Dose: 0.5 mg Escitalopram Oxalate (Lexapro) 20 mg PO DAILY [facility] Last Admin: 02/17/17 08:47 Dose: 20 mg Metronidazole (Flagyl 500mg/100ml Ns) 100 mls @ 100 mls/hr IVPB Q8 [facility] Last Admin: 02/17/17 08:47 Dose: 100 mls/hr Piperacillin Sod/Tazobactam (Sod 3.375 gm/ Sodium Chloride) 100 mls @ 100 mls/ hr IVPB Q6 [facility] Last Admin: 02/17/17 10:20 Dose: 100 mls/hr Sodium Chloride (Sodium Chloride 0.9%) 1,000 mls @ 125 mls/hr IV .Q8H [facility] Last Admin: 02/17/17 07:30 Dose: 125 mls/hr Morphine Sulfate (Morphine) 2 mg IVP Q4 PRN PRN Reason: Pain, moderate (4-7) Last Admin: 02/17/17 05:07 Dose: 2 mg - Labs Labs: 02/17/17 04:10 02/16/17 04:45 PT 13.1 SECONDS (9.6-11.2) H 02/13/17 18:52 INR 1.26 (0.92-1.08) H 02/13/17 18:52 APTT 29.2 SECONDS (23.3-32.5) 02/13/17 18:52 - Constitutional Appears: Well, Non-toxic, No Acute Distress - Head Exam Head Exam: ATRAUMATIC, NORMAL INSPECTION, NORMOCEPHALIC - ENT Exam ENT Exam: Mucous Membranes Moist, Normal Exam - Neck Exam Neck Exam: Full ROM - Respiratory Exam Respiratory Exam: Clear to Ausculation Bilateral, NORMAL BREATHING PATTERN - Cardiovascular Exam Cardiovascular Exam: REGULAR RHYTHM, +S1, +S2. absent: Murmur - GI/Abdominal Exam GI & Abdominal Exam: Soft, Normal Bowel Sounds. absent: Tenderness - Extremities Exam Extremities Exam: Full ROM - Neurological Exam Neurological Exam: Alert, Awake, Normal Gait, Oriented x3 - Psychiatric Exam Psychiatric exam: Normal Affect, Normal Mood - Skin Skin Exam: Dry, Intact, Normal Color, Warm Attending/Attestation - Attestation I have personally seen and examined this patient.: Yes I have fully participated in the care of the patient.: Yes I have reviewed all pertinent clinical information, including history, physical exam and plan: Yes Notes (Text): 02/17/17 13:43 Patient seen this am at bedside. This is a 27 year old male presenting with abdominal pain found to have SIRS in setting of pelvic multiloculated 6.7x 6x 6.2cm abscess, associated foci of free air adjacent to thickened sigmoid colon, and fistulous communication to separate 3.3x4.2cm cystic collection in pelvis likely secondary to fluid tracking from abscess site. Concern for Sandhya-colonic abscess and ? Colitis. Leukocytosis downtrending and no fever n 24 hours. Tolerated clear liquid diet. Will discharge on po antibiotics and he will follow with Pvt GI at [facility] for further care. Advance diet. Discussed with GI at [facility] and mother who agrees with plan 02/17/17 13:47
--- NOTE | 2017-02-17 20:55 | CP.PCM.PN ---
Subjective - Date & Time of Evaluation Date of Evaluation: 02/17/17 Time of Evaluation: 22:22 - Subjective Subjective: Above noted Objective - Vital Signs/Intake and Output Vital Signs (last 24 hours): Temp Pulse Resp BP Pulse Ox 98.3 F 73 18 119/75 96 02/17/17 08:00 02/17/17 09:00 02/17/17 08:00 02/17/17 08:00 02/17/17 08:00 - Labs Labs: 02/17/17 04:10 02/16/17 04:45 PT 13.1 SECONDS (9.6-11.2) H 02/13/17 18:52 INR 1.26 (0.92-1.08) H 02/13/17 18:52 APTT 29.2 SECONDS (23.3-32.5) 02/13/17 18:52 - Respiratory Exam Respiratory Exam: NORMAL BREATHING PATTERN - Cardiovascular Exam Cardiovascular Exam: REGULAR RHYTHM - GI/Abdominal Exam GI & Abdominal Exam: Normal Bowel Sounds - Rectal Exam Rectal Exam: NORMAL INSPECTION Assessment and Plan - Assessment and Plan (Free Text) Assessment: Abdominal pain with elevated WBC CT scan ?? Abscess? IBD? Diverticulitis? Cystitis? Surgery GI ID ABX IVF clear liquids Hematuria calcium oxylate crystals CT scan cystitis? 2 to above ? Urology consult d/c home F/U GI [facility]
== END 2017-02-17 12:20 | disposition home or self-care (01) | DRG 372 ==
LOC: H.ER 14:00 → SUPCPDRO 14:00 → H.ERHOLD 18:12 → H.TEL 22:12
PROVIDERS: ADMIT Family Medicine Geriatric Medicine; ATTEND Family Medicine Geriatric Medicine
DX: K63.0 Abscess of intestine (principal); N30.01 Acute cystitis with hematuria; K52.89 Other specified noninfective gastroenteritis and colitis; F41.9 Anxiety disorder, unspecified; F17.210 Nicotine dependence, cigarettes, uncomplicated; Z79.899 Other long term (current) drug therapy; Z87.440 Personal history of urinary (tract) infections